=== PATIENT | male | born 1940 | race Caucasian/White ===

== ENCOUNTER 2018-02-19 15:11 | Inpatient (IN) | payer MEDICARE, BC ==
[~2018-02-19] VITALS: Ht 172.7 cm; Wt 93.2 kg
[~2018-02-19 15:11] MED LIST: DILT180T PO; DRON400T PO; FAMO-63 PO; FENO135C PO; LOSA100T6 PO; RIVA10TA PO; SUCR1TAB35 PO; TAMS0.4C2 PO
--- NOTE | 2018-02-19 15:49 | EKG ---
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
[2018-02-19 16:11] LABS: BASO # 0.1 x10^3/uL (0.0-0.2); BASO % 1 % (0-3); EOS # 0.1 x10^3/uL (0.0-0.7); EOS % 1 % (0-3); HEMATOCRIT 40.7 % (39.0-53.0); HEMOGLOBIN 13.8 g/dL (13.0-17.5); LYMPH # 2.6 x10^3/uL (1.0-4.8); LYMPH % 26 % (24-48); MEAN CORPUSCULAR HEMOGLOBIN 30 pg (25-35); MEAN CORPUSCULAR HGB CONC 34 g/dL (31-37); MEAN CORPUSCULAR VOLUME 90 fL (79-100); MONO # 0.9 x10^3/uL (0.0-1.1); MONO % 9 % (0-9); NEUT # 6.6 x10^3uL (1.8-7.7); NEUT % 64 % (31-73); PLATELET COUNT 164 x10^3/uL (140-400); RED BLOOD COUNT 4.54 x10^6/uL (4.30-5.70); WHITE BLOOD COUNT 10.3 x10^3/uL (4.0-11.0)
--- NOTE | 2018-02-19 16:30 | RAD ---
Portable chest, 02/19/2018: History: Generalized weakness Comparison is made to a study from 12/14/2015. The heart size and pulmonary vascularity are normal. No pulmonary infiltrates are seen. There is no evidence of pleural fluid. IMPRESSION: No acute cardiopulmonary abnormality is detected.
[2018-02-19 16:37] LABS: ALBUMIN 3.8 g/dL (3.4-5.0); ALBUMIN/GLOBULIN RATIO 1.2 (1.0-1.7); CALCIUM 8.7 mg/dL (8.5-10.1); CREATININE 2.2 mg/dL (0.7-1.3); GFR 29.2; POTASSIUM 4.2 mmol/L (3.5-5.1); TOTAL BILIRUBIN 0.3 mg/dL (0.2-1.0); TOTAL PROTEIN 7.1 g/dL (6.4-8.2)
[2018-02-19 17:23] LABS: BILIRUBIN,URINE NEG (NEG); CLARITY,URINE HAZY; COLOR,URINE YELLOW; GLUCOSE,URINE NEG (NEG)
[2018-02-19 17:24] LABS: BACTERIA,URINE 0 /HPF (0-FEW); NITRITE,URINE NEG (NEG); SQUAMOUS EPITHELIAL CELL,UR MOD /LPF; UROBILINOGEN,URINE 0.2 mg/dL (0.2 mg/dL)
[2018-02-19 17:25] LABS: HYALINE CASTS, URINE FEW /HPF
--- NOTE | 2018-02-19 17:26 | PHYS DOC ---
Past History Past Medical History: A-Fib, High Cholesterol, Hypertension, Other Past Surgical History: Other Smoking: Non-smoker Alcohol Use: None Drug Use: None Adult General Chief Complaint Chief Complaint: WEAKNESS/GENERALIZED HPI HPI 77-year-old male patient state for the last 10 days he doesn't feel good and complaining of generalized weakness with problem with his balance episodes of exertional shortness of breath that gradually getting worse. Patient denies chest pain, fever and chills, nausea and vomiting, focal neuro deficit, blurred vision, headache, vomiting and diarrhea, urinary symptom.. Patient states he had the same problem 3 years ago with low hemoglobin. Patient states he was seen by his primary care physician yesterday and had blood tests and was told that his kidney test are off of normal and needs to come to emergency room. Review of Systems Review of Systems Constitutional: Denies fever or chills, reports generalized weakness [] Eyes: Denies change in visual acuity, redness, or eye pain [] HENT: Denies nasal congestion or sore throat [] Respiratory: Reports shortness of breath [] Cardiovascular: No additional information not addressed in HPI [] GI: Denies abdominal pain, nausea, vomiting, bloody stools or diarrhea [] : Denies dysuria or hematuria [] Musculoskeletal: Denies back pain or joint pain [] Integument: Denies rash or skin lesions [] Neurologic: Denies headache, focal weakness or sensory changes [] Endocrine: Denies polyuria or polydipsia [] All other systems were reviewed and found to be within normal limits, except as documented in this note. Allergies Allergies Allergies Coded Allergies Type Severity Reaction Last Updated Verified No Known Drug Allergies 02/19/18 No Physical Exam Physical Exam Constitutional: Well developed, well nourished, mild distress, non-toxic appearance. [] HENT: Normocephalic, atraumatic, bilateral external ears normal, oropharynx moist, no oral exudates, nose normal. [] Eyes: PERRLA, EOMI, conjunctiva normal, no discharge. [] Neck: Normal range of motion, no tenderness, supple, no stridor. [] Cardiovascular: Irregularly irregular heartbeat, no murmur [] Lungs & Thorax: Bilateral breath sounds clear to auscultation [] Abdomen: Bowel sounds normal, soft, no tenderness, no masses, no pulsatile masses. [] Skin: Warm, dry, no erythema, no rash. [] Back: No tenderness, no CVA tenderness. [] Extremities: No tenderness, no cyanosis, no clubbing, ROM intact, no edema. [] Neurologic: Alert and oriented X 3, normal motor function, normal sensory function, no focal deficits noted. [] Psychologic: Affect normal, judgement normal, mood normal. [] Current Patient Data Vital Signs Vital Signs Date Time Temp Pulse Resp B/P (MAP) Pulse Ox O2 Delivery O2 Flow Rate FiO2 02/19/18 16:29 62 16 150/58 (88) 96 02/19/18 15:30 97.9 Room Air Lab Results Laboratory Tests Test 02/19/18 15:55 White Blood Count 10.3 x10^3/uL (4.0-11.0) Red Blood Count 4.54 x10^6/uL (4.30-5.70) Hemoglobin 13.8 g/dL (13.0-17.5) Hematocrit 40.7 % (39.0-53.0) Mean Corpuscular Volume 90 fL (79-100) Mean Corpuscular Hemoglobin 30 pg (25-35) Mean Corpuscular Hemoglobin Concent 34 g/dL (31-37) Red Cell Distribution Width 14.0 % (11.5-14.5) Platelet Count 164 x10^3/uL (140-400) Neutrophils (%) (Auto) 64 % (31-73) Lymphocytes (%) (Auto) 26 % (24-48) Monocytes (%) (Auto) 9 % (0-9) Eosinophils (%) (Auto) 1 % (0-3) Basophils (%) (Auto) 1 % (0-3) Neutrophils # (Auto) 6.6 x10^3uL (1.8-7.7) Lymphocytes # (Auto) 2.6 x10^3/uL (1.0-4.8) Monocytes # (Auto) 0.9 x10^3/uL (0.0-1.1) Eosinophils # (Auto) 0.1 x10^3/uL (0.0-0.7) Basophils # (Auto) 0.1 x10^3/uL (0.0-0.2) Sodium Level 141 mmol/L (136-145) Potassium Level 4.2 mmol/L (3.5-5.1) Chloride Level 106 mmol/L (98-107) Carbon Dioxide Level 24 mmol/L (21-32) Anion Gap 11 (6-14) Blood Urea Nitrogen 40 mg/dL (8-26) H Creatinine 2.2 mg/dL (0.7-1.3) H Estimated GFR (Cockcroft-Gault) 29.2 BUN/Creatinine Ratio 18 (6-20) Glucose Level 123 mg/dL (70-99) H Calcium Level 8.7 mg/dL (8.5-10.1) Magnesium Level 2.0 mg/dL (1.8-2.4) Total Bilirubin 0.3 mg/dL (0.2-1.0) Aspartate Amino Transferase (AST) 26 U/L (15-37) Alanine Aminotransferase (ALT) 40 U/L (16-63) Alkaline Phosphatase 37 U/L (46-116) L Creatine Kinase 151 U/L (39-308) Creatine Kinase MB (Mass) 2.9 ng/mL (0.0-3.6) Creatine Kinase MB Relative Index 1.9 % (0-4) Troponin I Quantitative < 0.017 ng/mL (0-0.055) NX-Wvx-A-Type Natriuretic Peptide 1300 pg/mL (0-449) H Total Protein 7.1 g/dL (6.4-8.2) Albumin 3.8 g/dL (3.4-5.0) Albumin/Globulin Ratio 1.2 (1.0-1.7) EKG EKG EKG interpreted by me. EKG at 1546 showed atrial fibrillation at rate of 60, left chirinos axis deviation, right bundle branch block, poor R-wave progress in inferior leads, no acute ST and T-wave abnormalities[] Radiology/Procedures Radiology/Procedures [] [address] [address] IMAGING REPORT Signed PATIENT: TACHO VAZQUEZ ACCOUNT: [id number] : 1940 LOCATION: ER AGE: 77 SEX: M EXAM STATUS: REG ER ORD. PHYSICIAN: AMY ROGERS MD REASON: generalized weakness PROCEDURE: PORTABLE CHEST 1V Portable chest, 02/19/2018: History: Generalized weakness Comparison is made to a study from 12/14/2015. The heart size and pulmonary vascularity are normal. No pulmonary infiltrates are seen. There is no evidence of pleural fluid. IMPRESSION: No acute cardiopulmonary abnormality is detected. DICTATED AND SIGNED BY: NASRIN WING MD DATE: 02/19/18 6188 CC: DEMETRIA COMBS MD; AMY ROGERS MD ~ Course & Med Decision Making Course & Med Decision Making Pertinent Labs and Imaging studies reviewed. (See chart for details) Evaluation of patient in ER showed 77-year-old female patient with history of chronic renal failure with complaining of generalized weakness for 10 days. Patient had BUN/creatinine of 40 and 2.2 without electrolyte problem or anemia. UA showed mild UTI. Dr. Combs informed at 1723 and recommended to admit patient for more evaluation. UA showed UTI and antibiotics was ordered. [] Dragon Disclaimer Dragon Disclaimer This electronic medical record was generated, in whole or in part, using a voice recognition dictation system. Departure Departure: Impression: Primary Impression: Generalized weakness Additional Impressions: Shortness of breath Chronic renal insufficiency Elevated brain natriuretic peptide (BNP) level Disposition: 09 ADMITTED INPATIENT (At 1723) Admitting Physician: Demetria Combs Condition: STABLE Referrals: DEMETRIA COMBS MD (PCP) Problem Qualifiers AMY ROGERS MD Feb 19, 2018 17:26
[2018-02-19] MEDS ORDERED: cefTRIAXone IV Push 1 GM VIAL. IVP ONE (18:00)
[2018-02-19 18:46] VITALS: BP 163/79
[2018-02-19] MEDS ORDERED: APIX5TAB3 PO (19:07)
[2018-02-19] MEDS ORDERED: FERR325T14 PO (19:07)
[2018-02-19] MEDS ORDERED: ASCO500C PO (19:07)
[2018-02-19] MEDS ORDERED: MULT1TAB52 PO (19:07)
[2018-02-19] MEDS ORDERED: CALC-30 PO (19:07)
[2018-02-19] MEDS: FENOFIBRATE NANOCRYSTALLIZED 145 MG TABLET PO SCH (21:09)
[2018-02-19] MEDS: APIXABAN 5 MG TABLET. PO SCH (21:09)
[2018-02-19] MEDS: DRONEDARONE HCL 400 MG TABLET PO SCH (21:10)
[2018-02-19 23:00] VITALS: BP 125/67
[2018-02-20 05:01] VITALS: BP 142/72
[2018-02-20 06:29] LABS: BASO % 1 % (0-3); EOS # 0.2 x10^3/uL (0.0-0.7); EOS % 3 % (0-3); HEMATOCRIT 38.5 % (39.0-53.0); LYMPH # 2.1 x10^3/uL (1.0-4.8); LYMPH % 33 % (24-48); MEAN CORPUSCULAR HEMOGLOBIN 30 pg (25-35); MEAN CORPUSCULAR HGB CONC 34 g/dL (31-37); MEAN CORPUSCULAR VOLUME 89 fL (79-100); MONO # 0.6 x10^3/uL (0.0-1.1); MONO % 9 % (0-9); NEUT # 3.5 x10^3uL (1.8-7.7); NEUT % 55 % (31-73); PLATELET COUNT 144 x10^3/uL (140-400); RED BLOOD COUNT 4.31 x10^6/uL (4.30-5.70); RED CELL DISTRIBUTION WIDTH 13.6 % (11.5-14.5); WHITE BLOOD COUNT 6.5 x10^3/uL (4.0-11.0)
[2018-02-20 06:40] LABS: ALBUMIN 3.6 g/dL (3.4-5.0); ALBUMIN/GLOBULIN RATIO 1.2 (1.0-1.7); CALCIUM 9.1 mg/dL (8.5-10.1); CREATININE 1.7 mg/dL (0.7-1.3); GFR 39.3; POTASSIUM 4.1 mmol/L (3.5-5.1); TOTAL BILIRUBIN 0.4 mg/dL (0.2-1.0); TOTAL PROTEIN 6.7 g/dL (6.4-8.2)
[2018-02-20] MEDS: ASCORBIC ACID 500 MG TABLET PO SCH (08:09)
[2018-02-20] MEDS: APIXABAN 5 MG TABLET. PO SCH ×2 (08:09→20:15)
[2018-02-20] MEDS: CALCIUM CARB/VIT D3 500/200 TABLET PO SCH (08:09)
[2018-02-20] MEDS: MULTIVITAMIN with MINERAL TABLET. PO SCH (08:09)
[2018-02-20] MEDS: DRONEDARONE HCL 400 MG TABLET PO SCH ×2 (08:09→20:15)
[2018-02-20] MEDS: LOSARTAN 50 MG TABLET. PO SCH (08:10)
[2018-02-20] MEDS ORDERED: FENOFIBRATE NANOCRYSTALLIZED 145 MG TABLET PO SCH (09:00)
[2018-02-20 10:50] VITALS: BP 127/75
--- NOTE | 2018-02-20 11:59 | CARD ---
MR#: [id number] Date of Study: 02/20/2018 Ordering Physician: DEMETRIA COMBS, Referring Physician: DEMETRIA COMBS, Tech: PRICE [place] APPROVED REPORT EXAM: Two-dimensional and M-mode echocardiogram with Doppler and color Doppler. Other Information Quality : GoodHR: 75bpm INDICATION Chest Pain 2D DIMENSIONS RVDd2.9 (2.9-3.5cm)Left Atrium(2D)3.6 (1.6-4.0cm) IVSd1.6 (0.7-1.1cm)Aortic Root(2D)3.1 (2.0-3.7cm) LVDd3.9 (3.9-5.9cm)LVOT Diameter2.2 (1.8-2.4cm) PWd1.6 (0.7-1.1cm)LVDs2.6 (2.5-4.0cm) FS (%) 34.4 %SV43.3 ml Aortic Valve AoV Peak Hossein.190.9cm/sAoV VTI41.6cm AO Peak GR.14.6mmHgLVOT Peak Hossein.110.7cm/s LVOT VTI 23.53cmAO Mean GR.9mmHg TAJ (VMAX)2.73db5WVN (VTI)2.06cm2 Pulmonary Valve PV Peak Ytywzgyv888.0cm/sPV Peak Grad.6mmHg Tricuspid Valve TR P. Weebzxox433nu/sTR Peak Gr.27mmHg Pulmonary Vein S1 Pnhtmkpn08.7cm/sD2 Zlamifjr19.1cm/s LEFT VENTRICLE The left ventricle is normal size. There is mild concentric left ventricular hypertrophy. The left ve ntricular systolic function is normal and the ejection fraction is within normal range. LV ejection f raction is 55-60%. There is normal LV segmental wall motion. The left ventricular diastolic function and filling is normal for age. RIGHT VENTRICLE The right ventricle is normal size. The right ventricular systolic function is normal. ATRIA The left atrium size is normal. The right atrium size is normal. The interatrial septum is intact wit h no evidence for an atrial septal defect or patent foramen ovale as noted on 2-D or Doppler imaging. AORTIC VALVE The aortic valve is mildly calcified. Doppler and Color Flow revealed trace aortic regurgitation. The re is no significant aortic valvular stenosis. There is no aortic valvular vegetation. MITRAL VALVE The mitral valve is mildly thickened. Mitral annular calcification is mild. There is no evidence of m itral valve prolapse. There is no mitral valve stenosis. Doppler and Color Flow revealed trace mitral valve regurgitation. TRICUSPID VALVE The tricuspid valve leaflets are thickened or calcified, but open well. Doppler and Color Flow reveal ed mild tricuspid regurgitation. There is no tricuspid valve prolapse or vegetation. There is no tric uspid valve stenosis. PULMONIC VALVE The pulmonic valve is not well visualized. Doppler and Color Flow revealed no pulmonic valvular regur gitation. There is no pulmonic valvular stenosis. GREAT VESSELS The aortic root is normal in size. The IVC was not visualized. PERICARDIAL EFFUSION There is no pleural effusion. There is no evidence of significant pericardial effusion. Critical Notification Critical Value: No <Conclusion> The left ventricle is normal size. The left ventricular systolic function is normal and the ejection fraction is within normal range. LV ejection fraction is 55-60%. There is mild concentric left ventricular hypertrophy. There is no significant aortic valvular stenosis. Doppler and Color Flow revealed trace aortic regurgitation. Doppler and Color Flow revealed trace mitral valve regurgitation. Doppler and Color Flow revealed mild tricuspid regurgitation. Signed by : Miah Mitchell MD Electronically Approved : 02/20/2018 11:58:25
[2018-02-20 15:03] VITALS: BP 154/78
--- NOTE | 2018-02-20 15:58 | PDOC2 ---
RHONDA OLVERA WATCH AND CLOCK REPAIRER 02/20/18 1558: CONSULT Date of Admission DATE: 02/20/18 TIME: 15:43 Reason for Consult: Elevated BNP Referring Physician: Dr Grigsby Problem List Problems Medical Problems: (1) Chronic renal insufficiency Status: Acute (2) Elevated brain natriuretic peptide (BNP) level Status: Acute (3) Generalized weakness Status: Acute (4) Shortness of breath Status: Acute History of Present Illness This is a 77 year old male who presented to the emergency room with chief complaint of weakness.The patient has a history of hypertension, hyperlipidemia , and paroxysmal atrial fibrillation. Over the last 2 weeks he has been having progressive weakness. He has noticed it when he is trying to get out about he will feel overwhelmingly tired. He was at his primary care doctor's office with his and told them of his symptoms. They bisi his blood work because he thought maybe he was anemic again. When the symptoms persisted they had him present to the emergency room. He was found to have a urinary tract infection and an elevated BNP. He has not felt progressive shortness of breath , PND or orthopnea. He denies any recent increase in lower extremity edema. He has had some lightheadedness but no palpitations. During his hospitalization he has been on a residential monitor that showed a short run of atrial flutter. He was asymptomatic at the time. He denies any chest pain, tightness or pressure. Allergies: DOXYCYCLINE Medications: Cartia XT 180 mg capsule,extended release1 capsule daily and a 2nd tablet daily as needed for palpitations. Eliquis 5 mg tablet Take 1 tablet(s) twice a day by oral route. fenofibrate 160 mg [id number] filled [facility] iron once daily losartan 100 mg tablet Take 1 tablet(s) every day by oral route for 30 days. Multaq 400 mg tablet TAKE ONE TABLET BY MOUTH TWICE DAILY Family History : His father had heart disease at a later stage. His daughter has hypertension diabetes. His mother had diabetes. Social History Marital status: Diet: Regular Exercise level: Moderate Smoking Status: Never smoker Alcohol intake: None Caffeine intake: Occasional Past Medical/Surgical History - He has a past medical history of paroxysmal atrial fibrillation, hyperlipidemia, hypertension, bilateral cataract removal, tonsillectomy, adenoidectomy, chronic kidney disease stage 3, status post TURP, bilateral metacarpal surgery, right knee replacement Review of systems -review of 10 organ systems is negative except for as in HPI. Patient is a 77-year-old male. GENERAL: This is a well developed, well nourished male. No apparent distress. SKIN: Warm and dry with normal skin turgor. Negative for pallor. No lesions or rashes noted. EYES: Conjunctiva are clear. Extraocular movements are intact. No xanthelasma. HEAD AND NECK: Oral mucosa is moist. There is no cyanosis. Neck is supple. Jugular venous pressure is flat. Carotid pulses are 2/2 bilaterally. No carotid bruits. There is no obvious thyromegaly. HEART: Regular rate and rhythm. Normal S1 and S2. No S3. No S4. No significant murmur. No rub. PMI is not displaced. LUNGS: Effort is good. There is symmetric expansion bilaterally. Clear to auscultation bilaterally. No wheezes. No crackles. No rhonchi. ABDOMEN: Normal active bowel sounds. Soft. Nontender. EXTREMITIES: No clubbing. No cyanosis. No edema of lower extremities. Palpable pedal pulses. MUSCULOSKELETAL: No kyphosis. No scoliosis. No localized tenderness or stiffness. Gait appears normal. NEUROLOGIC: Alert and oriented times three. Cranial nerves III-XII are grossly intact. Good motor tone and strength in the upper and lower extremities bilaterally. PSYCHOLOGIC: This is a pleasant patient with a normal affect Procedure: ECHOCARDIOGRAM IMPRESSION (11/06/2017):. There is mild concentric left ventricular hypertrophy. The left ventricular systolic function is normal with a visually estimated ejection fraction of 60-65 %. There is evidence of impaired left ventricular relaxation suggestive of stage I diastolic dysfunction. The proximal ascending aorta appears mildly dilated at 3.9 cm. There is mildaortic stenosis. There is mild aortic regurgitation. There is mild mitral annular calcification. The estimated pulmonary artery systolic pressure is normal at 28 mmHg. Compared to the report (images were not available for review) of the study dated 10/30/2016, there is no significant change. EVENT MONITOR 05/02/17: Predominant rhythm was sinus with heart rate ranging from 39 to 139 bpm, with averate 70 bpm. There was an intermittent bundle brance block noted. There were rare episodes of atrial fibrillation (<1%), with longest episode lasting over 11 minutes. Fastest ventricular rate with afib was 139bpm. There were occasional pauses, longest lasting 3.9 seconds. There were occasional isolated PAC's and rare isolated PVC's. THere were no significant ventricular arrhythmias. There was one triggered event that correlated with sinus rhythm. ECHOCARDIOGRAM IMPRESSION (10/30/2016):. There is mild concentric left ventricular hypertrophy. No significant regional wall motion abnormalities are identified. The left ventricular systolic function is normal with a visually estimated ejection fraction of 55-60%. There is evidence of impaired left ventricular relaxation suggestive of stage I diastolic dysfunction. The proximal ascending aorta appears mildly dilated at 4.1 cm. There is mild aortic valve sclerosis. There is mild mitral annular calcification. There is mild aortic and tricuspid regurgitation. The estimated pulmonary artery systolic pressure is normal at 29 mmHg. Compared to the report (images were not available for review) of the study dated 10/25/2015, the pulmonary hypertension is not seen. ECHOCARDIOGRAM IMPRESSION (10/25/2015): The left ventricle is normal in size. There is mild concentric left ventricular hypertrophy. No significant regional wall motion abnormalities are identified. The left ventricular systolic function is normal with an estimated ejection fraction of 60%. There is evidence of impaired left ventricular relaxation suggestive of stage I diastolic dysfunction. The proximal ascending aorta appears mildly dilated at 3.9 cm. There is mild aortic valve sclerosis. There is mild aortic and tricuspid regurgitation. The estimated pulmonary artery systolic pressure is 36 mmHg, consistent with mild pulmonary hypertension. Compared to the report (images were not available for review) of the study dated 09/13/2010, mild aortic regurgitation, mild ascending aortic dilatation and mild pulmonary hypertension are new findings. EXERCISE NUCLEAR STRESS TEST IMPRESSION (12/01/2012): Hemodynamic response: There was a normal heart rate and a normal blood pressure response to stress. Clinical response: There was no chest pain during stress. Arrhythmias: None. Stress ECG: There were no significant stress induced ECG changes. Exercise capacity: Good. Carrion score: 6. Myocardial perfusion: Normal perfusion without evidence of infarction or ischemia. Wall motion: Normal. Ejection fraction: 54%. No previous study available for comparison. Assessment / Plan Atrial fibrillation, paroxysmal. His monitor strip show that he is having breakthrough atrial flutter/ fibrillation. This could be related to his current urinary tract infection. [id number] Vasc score is 2, Continue Multaq and diltiazem for rate/rhythm maintenance and Eliquis for anticoagulation. Post discharge we will plan for event monitor to make sure that he is not having further recurrence. Hypertension, Continue current anti hypertensive medicine. Thoracic aortic aneurysm - Continue with continuing beta marcella, dilated at 4.1 cm. Stable on echocardiogram in October. Hyperlipidemia . His goal LDL is < 100 mg/dL. Chronic kidney disease, Stage 3 - GFR 42 - Avoid dehydration - drink plenty of water. Avoid Motrin, Ibuprofen, Advil, Naprosyn or Aleve and take Tylenol for pain. Aggressive blood pressure control with goal of less than 130/85 mmHg. Obesity. BMI 30, Lifestyle modification with exercise, diet and weight loss recommended. Current Medications Current Medications Ceftriaxone Sodium 1 gm/ Sodium Chloride 50 ml @ 100 mls/hr 1X ONCE IV ; Start 02/19/18 at 17:45; Stop 02/19/18 at 18:14; Status UNV Ceftriaxone Sodium (Rocephin) 1 gm 1X ONCE IVP Last administered on 02/19/18at 18:05; Start 02/19/18 at 18:00; Stop 02/19/18 at 18:01; Status DC Apixaban (Eliquis) 5 mg BID PO Last administered on 02/20/18at 08:09; Start 09/28 at 21:00 Dronedarone (Multaq) 400 mg BID PO Last administered on 02/20/18at 08:09; Start 02/19/18 at 21:00 Ferrous Sulfate (Feosol) 325 mg QODAY PO ; Start 02/21/18 at 09:00 Ascorbic Acid (Vitamin C) 500 mg DAILY PO Last administered on 02/20/18at 08:09 ; Start 02/20/18 at 09:00 Calcium/Vitamin D (Oscal D 500mg/ 200uts) 1 tab DAILY PO Last administered on at 08:09; Start 02/20/18 at 09:00 Diltiazem HCl (Cardizem 24hr Cd) 180 mg DAILY PO Last administered on at 08:09; Start 02/20/18 at 09:00 Fenofibrate (Tricor) 145 mg DAILY PO ; Start 02/20/18 at 09:00; Stop 02/20/18 at 09:00; Status DC Losartan Potassium (Cozaar) 50 mg DAILY PO Last administered on 02/20/18at 08:10 ; Start 02/20/18 at 09:00 Multivitamins/ Calcium (Thera-M Plus) 1 tab DAILY PO Last administered on at 08:09; Start 02/20/18 at 09:00 Fenofibrate (Tricor) 145 mg HS PO Last administered on 02/19/18at 21:09; Start 02/19/18 at 21:00 Ceftriaxone Sodium 1 gm/ Sodium Chloride 50 ml @ 100 mls/hr Q24H IV ; Start 10/28 at 18:00; Stop 02/20/18 at 18:00; Status DC Ceftriaxone Sodium (Rocephin) 1 gm Q24H IVP ; Start 02/20/18 at 18:00 Active Scripts Active Losartan Potassium 100 Mg Tablet 50 Mg PO DAILY 0 Days Reported Calcium 500 + Vit D 400 Tablet (Calcium Carbonate/Vitamin D3) 1 Each Tablet 1 Each PO DAILY Vitamin C (Ascorbic Acid) 500 Mg Capsule.er 500 Mg PO DAILY Multivitamins (Multivitamin) 1 Each Tablet 1 Tab PO DAILY Ferrous Sulfate 325 Mg Tablet 1 Tab PO QODAY Eliquis (Apixaban) 5 Mg Tablet 5 Mg PO BID Multaq (Dronedarone Hcl) 400 Mg Tablet 400 Mg PO BID 0 Days last dose next dose Cardizem La (Diltiazem Hcl) 180 Mg Tab.er.24h 180 Mg PO DAILY last dose next dose Trilipix (Fenofibric Acid (Choline)) 135 Mg Capsule.dr 135 Mg PO DAILY last dose next dose Allergies: Coded Allergies: No Known Drug Allergies (Unverified , 02/19/18) VITALS Vital Signs Date Time Temp Pulse Resp B/P (MAP) Pulse Ox O2 Delivery O2 Flow Rate FiO2 02/20/18 15:03 98.2 82 20 154/78 (103) 95 Room Air Labs Laboratory Tests Test 02/19/18 15:55 02/19/18 16:41 02/19/18 17:49 02/20/18 05:57 White Blood Count 10.3 x10^3/uL (4.0-11.0) 6.5 x10^3/uL (4.0-11.0) Red Blood Count 4.54 x10^6/uL (4.30-5.70) 4.31 x10^6/uL (4.30-5.70) Hemoglobin 13.8 g/dL (13.0-17.5) 13.0 g/dL (13.0-17.5) Hematocrit 40.7 % (39.0-53.0) 38.5 % (39.0-53.0) Mean Corpuscular Volume 90 fL (79-100) 89 fL (79-100) Mean Corpuscular Hemoglobin 30 pg (25-35) 30 pg (25-35) Mean Corpuscular Hemoglobin Concent 34 g/dL (31-37) 34 g/dL (31-37) Red Cell Distribution Width 14.0 % (11.5-14.5) 13.6 % (11.5-14.5) Platelet Count 164 x10^3/uL (140-400) 144 x10^3/uL (140-400) Neutrophils (%) (Auto) 64 % (31-73) 55 % (31-73) Lymphocytes (%) (Auto) 26 % (24-48) 33 % (24-48) Monocytes (%) (Auto) 9 % (0-9) 9 % (0-9) Eosinophils (%) (Auto) 1 % (0-3) 3 % (0-3) Basophils (%) (Auto) 1 % (0-3) 1 % (0-3) Neutrophils # (Auto) 6.6 x10^3uL (1.8-7.7) 3.5 x10^3uL (1.8-7.7) Lymphocytes # (Auto) 2.6 x10^3/uL (1.0-4.8) 2.1 x10^3/uL (1.0-4.8) Monocytes # (Auto) 0.9 x10^3/uL (0.0-1.1) 0.6 x10^3/uL (0.0-1.1) Eosinophils # (Auto) 0.1 x10^3/uL (0.0-0.7) 0.2 x10^3/uL (0.0-0.7) Basophils # (Auto) 0.1 x10^3/uL (0.0-0.2) 0.0 x10^3/uL (0.0-0.2) Sodium Level 141 mmol/L (136-145) 141 mmol/L (136-145) Potassium Level 4.2 mmol/L (3.5-5.1) 4.1 mmol/L (3.5-5.1) Chloride Level 106 mmol/L (98-107) 103 mmol/L (98-107) Carbon Dioxide Level 24 mmol/L (21-32) 27 mmol/L (21-32) Anion Gap 11 (6-14) 11 (6-14) Blood Urea Nitrogen 40 mg/dL (8-26) 31 mg/dL (8-26) Creatinine 2.2 mg/dL (0.7-1.3) 1.7 mg/dL (0.7-1.3) Estimated GFR (Cockcroft-Gault) 29.2 39.3 BUN/Creatinine Ratio 18 (6-20) 18 (6-20) Glucose Level 123 mg/dL (70-99) 98 mg/dL (70-99) Calcium Level 8.7 mg/dL (8.5-10.1) 9.1 mg/dL (8.5-10.1) Magnesium Level 2.0 mg/dL (1.8-2.4) Total Bilirubin 0.3 mg/dL (0.2-1.0) 0.4 mg/dL (0.2-1.0) Aspartate Amino Transf (AST/SGOT) 26 U/L (15-37) 19 U/L (15-37) Alanine Aminotransferase (ALT/SGPT) 40 U/L (16-63) 33 U/L (16-63) Alkaline Phosphatase 37 U/L (46-116) 32 U/L (46-116) Creatine Kinase 151 U/L (39-308) Creatine Kinase MB (Mass) 2.9 ng/mL (0.0-3.6) Creatine Kinase MB Relative Index 1.9 % (0-4) Troponin I Quantitative < 0.017 ng/mL (0-0.055) RE-Uop-Q-Type Natriuretic Peptide 1300 pg/mL (0-449) Total Protein 7.1 g/dL (6.4-8.2) 6.7 g/dL (6.4-8.2) Albumin 3.8 g/dL (3.4-5.0) 3.6 g/dL (3.4-5.0) Albumin/Globulin Ratio 1.2 (1.0-1.7) 1.2 (1.0-1.7) Urine Collection Type Unknown Urine Color Yellow Urine Clarity Hazy Urine pH 5.0 Urine Specific Swain 1.020 Urine Protein 30 mg/dl (NEG-TRACE) Urine Glucose (UA) Neg mg/dL (NEG) Urine Ketones (Stick) Neg mg/dL (NEG) Urine Blood Trace (NEG) Urine Nitrite Neg (NEG) Urine Bilirubin Neg (NEG) Urine Urobilinogen Dipstick 0.2 mg/dL (0.2 mg/dL) Urine Leukocyte Esterase Trace (NEG) Urine RBC 3-5 /HPF (0-2) Urine WBC 5-10 /HPF (0-4) Urine Squamous Epithelial Cells Mod /LPF Urine Bacteria 0 /HPF (0-FEW) Urine Cellular Casts Few /HPF Urine Hyaline Casts Few /HPF Urine Mucus Mod /LPF Lactic Acid Level 0.9 mmol/L (0.4-2.0) ALEJANDRO PAIGE Jr, MD 02/21/18 0633: CONSULT Allergies: Coded Allergies: No Known Drug Allergies (Unverified , 02/19/18) Assessment/Plan The patient was seen by Rhonda Olvera APRN and I have reviewed her findings and plan and agree with above. Due to staffing constraints, we did not have an attending available on this day to see the patient. Problems: RHONDA OLVERA APRN Feb 20, 2018 15:58 ALEJANDRO PAIGE Jr, MD Feb 21, 2018 06:33
[2018-02-20] MEDS ORDERED: cefTRIAXone IV Push 1 GM VIAL. IVP SCH (18:00)
[2018-02-20 18:58] VITALS: BP 127/70
[2018-02-20] MEDS ORDERED: ACETAMINOPHEN 325 MG TABLET PO PRN (20:00)
[2018-02-20] MEDS: FENOFIBRATE NANOCRYSTALLIZED 145 MG TABLET PO SCH (20:15)
--- NOTE | 2018-02-20 22:46 | PN ---
DATE: 02/20/2018 SUBJECTIVE: The patient resting fairly comfortably, with generalized weakness and alike. The patient otherwise seems to be resting fairly comfortably, may have some pauses on his EKG. OBJECTIVE: VITAL SIGNS: Blood pressure 120/60, respiratory rate 20, pulse 61, afebrile. GENERAL: The patient is alert and oriented x 3. NEUROLOGIC: Speech fluent, spontaneous, appropriate. Cranial nerves 2-12 are grossly intact. The patient otherwise a little bit depressed. PLAN: We will go ahead and continue to monitor the patient accordingly, have Cardiology review him and make further evaluation per those results. The patient's EKG basically abnormal, nonspecific intraventricular block, some pauses noted. We will go ahead and continue possible pacemaker placement and make further evaluation as indicated. IMPRESSION: Chest pain. DEMETRIA COMBS MD DR: PAMELA/mckay JOB#: [id number] / [id number]
--- NOTE | 2018-02-20 22:48 | PN ---
DATE: 02/20/2018 SUBJECTIVE: A 77-year-old gentleman doing much better overall. The patient will be continued to be monitored carefully. Says he is still fairly weak. We will go ahead and continue to monitor him. The patient's monitor strip shows possible pauses. Cardiology is evaluating that and also will have an echo. OBJECTIVE: VITAL SIGNS: Blood pressure 140/70, respiratory rate 20, pulse 80, afebrile. LUNGS: Clear. CARDIOVASCULAR: Regular sinus rhythm. ABDOMEN: Soft, protuberant, nontender. EXTREMITIES: +1 edema. NEUROLOGIC: The patient was alert and oriented x 3. PLAN: The patient will continued to be monitored carefully, make further evaluation on him as indicated after Cardiology has evaluated him. DEMETRIA COMBS MD DR: PAMELA/mckay JOB#: [id number] / [id number]
[2018-02-20 23:31] VITALS: BP 133/68
[2018-02-21 05:09] VITALS: BP 134/75
[2018-02-21] MEDS: APIXABAN 5 MG TABLET. PO SCH (08:23)
[2018-02-21] MEDS: CALCIUM CARB/VIT D3 500/200 TABLET PO SCH (08:24)
[2018-02-21] MEDS: ASCORBIC ACID 500 MG TABLET PO SCH (08:24)
[2018-02-21] MEDS: LOSARTAN 50 MG TABLET. PO SCH (08:24)
[2018-02-21] MEDS: MULTIVITAMIN with MINERAL TABLET. PO SCH (08:24)
[2018-02-21 08:27] VITALS: BP 134/75
[2018-02-21] MEDS: DRONEDARONE HCL 400 MG TABLET PO SCH (08:27)
--- NOTE | 2018-02-21 08:33 | PDOC ---
RHONDA MORALES LETTERSET PRESS SET UP OPERATOR 02/21/18 0833: PROGRESS NOTES Diagnosis Problem Problems Medical Problems: (1) Chronic renal insufficiency Status: Acute (2) Elevated brain natriuretic peptide (BNP) level Status: Acute (3) Generalized weakness Status: Acute (4) Shortness of breath Status: Acute Assessment Problems Medical Problems: We are seeing the patient for paroxysmal atrial fibrillation Atrial fibrillation, paroxysmal. Since admit he has had two episodes of breakthrough atrial flutter/ fibrillation. This could be related to his current urinary tract infection. When he spontaneously converted back to SR he had a 3.2 second pause. [id number] Vasc score is 2, Continue Multaq and diltiazem for rate/rhythm maintenance and Eliquis for anticoagulation. Post discharge we will plan for event monitor. Hypertension, Continue current anti hypertensive medicine. Thoracic aortic aneurysm - Continue with continuing beta marcella, dilated at 4.1 cm. Stable on echocardiogram in October. Hyperlipidemia . His goal LDL is < 100 mg/dL. Chronic kidney disease, Stage 3 - Looks better this morning Problems: Subjective Sitting up eating breakfast. Denies any chest pain, soa, or palpitations. He did not feel the episode of atrial flutter or pause, he was sleeping and groggy at the time. Objective Vital Signs Date Time Temp Pulse Resp B/P (MAP) Pulse Ox O2 Delivery O2 Flow Rate FiO2 02/21/18 08:27 62 134/75 02/21/18 05:09 97.5 16 97 Room Air Intake and Output 02/21/18 07:00 Intake Total 2520 ml Balance 2520 ml Intake Oral 2520 ml # Voids 10 # Bowel Movements 1 Abdomen: Normal bowel sounds, Soft, No tenderness Heart: Regular rate, Normal S1, Normal S2, No murmurs Extremities: No edema (trace edema), Normal pulses General: Alert, Oriented X3, Cooperative Psych/Mental Status: Mental status NL, Mood NL Review of Relevant I have reviewed the following items enoc (where applicable) has been applied. Labs Laboratory Tests Test 02/19/18 15:55 02/19/18 16:41 02/19/18 17:49 02/20/18 05:57 White Blood Count 10.3 x10^3/uL (4.0-11.0) 6.5 x10^3/uL (4.0-11.0) Red Blood Count 4.54 x10^6/uL (4.30-5.70) 4.31 x10^6/uL (4.30-5.70) Hemoglobin 13.8 g/dL (13.0-17.5) 13.0 g/dL (13.0-17.5) Hematocrit 40.7 % (39.0-53.0) 38.5 % (39.0-53.0) Mean Corpuscular Volume 90 fL (79-100) 89 fL (79-100) Mean Corpuscular Hemoglobin 30 pg (25-35) 30 pg (25-35) Mean Corpuscular Hemoglobin Concent 34 g/dL (31-37) 34 g/dL (31-37) Red Cell Distribution Width 14.0 % (11.5-14.5) 13.6 % (11.5-14.5) Platelet Count 164 x10^3/uL (140-400) 144 x10^3/uL (140-400) Neutrophils (%) (Auto) 64 % (31-73) 55 % (31-73) Lymphocytes (%) (Auto) 26 % (24-48) 33 % (24-48) Monocytes (%) (Auto) 9 % (0-9) 9 % (0-9) Eosinophils (%) (Auto) 1 % (0-3) 3 % (0-3) Basophils (%) (Auto) 1 % (0-3) 1 % (0-3) Neutrophils # (Auto) 6.6 x10^3uL (1.8-7.7) 3.5 x10^3uL (1.8-7.7) Lymphocytes # (Auto) 2.6 x10^3/uL (1.0-4.8) 2.1 x10^3/uL (1.0-4.8) Monocytes # (Auto) 0.9 x10^3/uL (0.0-1.1) 0.6 x10^3/uL (0.0-1.1) Eosinophils # (Auto) 0.1 x10^3/uL (0.0-0.7) 0.2 x10^3/uL (0.0-0.7) Basophils # (Auto) 0.1 x10^3/uL (0.0-0.2) 0.0 x10^3/uL (0.0-0.2) Sodium Level 141 mmol/L (136-145) 141 mmol/L (136-145) Potassium Level 4.2 mmol/L (3.5-5.1) 4.1 mmol/L (3.5-5.1) Chloride Level 106 mmol/L (98-107) 103 mmol/L (98-107) Carbon Dioxide Level 24 mmol/L (21-32) 27 mmol/L (21-32) Anion Gap 11 (6-14) 11 (6-14) Blood Urea Nitrogen 40 mg/dL (8-26) 31 mg/dL (8-26) Creatinine 2.2 mg/dL (0.7-1.3) 1.7 mg/dL (0.7-1.3) Estimated GFR (Cockcroft-Gault) 29.2 39.3 BUN/Creatinine Ratio 18 (6-20) 18 (6-20) Glucose Level 123 mg/dL (70-99) 98 mg/dL (70-99) Calcium Level 8.7 mg/dL (8.5-10.1) 9.1 mg/dL (8.5-10.1) Magnesium Level 2.0 mg/dL (1.8-2.4) Total Bilirubin 0.3 mg/dL (0.2-1.0) 0.4 mg/dL (0.2-1.0) Aspartate Amino Transf (AST/SGOT) 26 U/L (15-37) 19 U/L (15-37) Alanine Aminotransferase (ALT/SGPT) 40 U/L (16-63) 33 U/L (16-63) Alkaline Phosphatase 37 U/L (46-116) 32 U/L (46-116) Creatine Kinase 151 U/L (39-308) Creatine Kinase MB (Mass) 2.9 ng/mL (0.0-3.6) Creatine Kinase MB Relative Index 1.9 % (0-4) Troponin I Quantitative < 0.017 ng/mL (0-0.055) VZ-Lcl-Q-Type Natriuretic Peptide 1300 pg/mL (0-449) Total Protein 7.1 g/dL (6.4-8.2) 6.7 g/dL (6.4-8.2) Albumin 3.8 g/dL (3.4-5.0) 3.6 g/dL (3.4-5.0) Albumin/Globulin Ratio 1.2 (1.0-1.7) 1.2 (1.0-1.7) Urine Collection Type Unknown Urine Color Yellow Urine Clarity Hazy Urine pH 5.0 Urine Specific [place] 1.020 Urine Protein 30 mg/dl (NEG-TRACE) Urine Glucose (UA) Neg mg/dL (NEG) Urine Ketones (Stick) Neg mg/dL (NEG) Urine Blood Trace (NEG) Urine Nitrite Neg (NEG) Urine Bilirubin Neg (NEG) Urine Urobilinogen Dipstick 0.2 mg/dL (0.2 mg/dL) Urine Leukocyte Esterase Trace (NEG) Urine RBC 3-5 /HPF (0-2) Urine WBC 5-10 /HPF (0-4) Urine Squamous Epithelial Cells Mod /LPF Urine Bacteria 0 /HPF (0-FEW) Urine Cellular Casts Few /HPF Urine Hyaline Casts Few /HPF Urine Mucus Mod /LPF Lactic Acid Level 0.9 mmol/L (0.4-2.0) Microbiology 02/19/18 Blood Culture - Preliminary, Resulted NO GROWTH AFTER 1 DAY 02/19/18 Urine Culture - Preliminary, Resulted 02/19/18 Urine Culture Result 1 (BHAKTI) - Preliminary, Resulted Medications Current Medications Ceftriaxone Sodium 1 gm/ Sodium Chloride 50 ml @ 100 mls/hr 1X ONCE IV ; Start 02/19/18 at 17:45; Stop 02/19/18 at 18:14; Status UNV Ceftriaxone Sodium (Rocephin) 1 gm 1X ONCE IVP Last administered on 02/19/18at 18:05; Start 02/19/18 at 18:00; Stop 02/19/18 at 18:01; Status DC Apixaban (Eliquis) 5 mg BID PO Last administered on 02/21/18at 08:23; Start 09/28 at 21:00 Dronedarone (Multaq) 400 mg BID PO Last administered on 02/21/18at 08:27; Start 02/19/18 at 21:00 Ferrous Sulfate (Feosol) 325 mg QODAY PO Last administered on 02/21/18at 08:24; Start 02/21/18 at 09:00 Ascorbic Acid (Vitamin C) 500 mg DAILY PO Last administered on 02/21/18 08:24 ; Start 02/20/18 at 09:00 Calcium/Vitamin D (Oscal D 500mg/ 200uts) 1 tab DAILY PO Last administered on 08:24; Start 02/20/18 at 09:00 Diltiazem HCl (Cardizem 24hr Cd) 180 mg DAILY PO Last administered on 08:24; Start 02/20/18 at 09:00 Fenofibrate (Tricor) 145 mg DAILY PO ; Start 02/20/18 at 09:00; Stop 02/20/18 at 09:00; Status DC Losartan Potassium (Cozaar) 50 mg DAILY PO Last administered on 02/21/18 08:24 ; Start 02/20/18 at 09:00 Multivitamins/ Calcium (Thera-M Plus) 1 tab DAILY PO Last administered on 08:24; Start 02/20/18 at 09:00 Fenofibrate (Tricor) 145 mg HS PO Last administered on 02/20/18at 20:15; Start 02/19/18 at 21:00 Ceftriaxone Sodium 1 gm/ Sodium Chloride 50 ml @ 100 mls/hr Q24H IV ; Start 10/28 at 18:00; Stop 02/20/18 at 18:00; Status DC Ceftriaxone Sodium (Rocephin) 1 gm Q24H IVP Last administered on 02/20/18at 17: 48; Start 02/20/18 at 18:00 Acetaminophen (Tylenol) 650 mg PRN Q6HRS PRN PO PAIN / TEMP Last administered on 02/20/18at 20:16; Start 02/20/18 at 20:00 Active Scripts Active Losartan Potassium 100 Mg Tablet 50 Mg PO DAILY 0 Days Reported Calcium 500 + Vit D 400 Tablet (Calcium Carbonate/Vitamin D3) 1 Each Tablet 1 Each PO DAILY Vitamin C (Ascorbic Acid) 500 Mg Capsule.er 500 Mg PO DAILY Multivitamins (Multivitamin) 1 Each Tablet 1 Tab PO DAILY Ferrous Sulfate 325 Mg Tablet 1 Tab PO QODAY Eliquis (Apixaban) 5 Mg Tablet 5 Mg PO BID Multaq (Dronedarone Hcl) 400 Mg Tablet 400 Mg PO BID 0 Days last dose next dose Cardizem La (Diltiazem Hcl) 180 Mg Tab.er.24h 180 Mg PO DAILY last dose next dose Trilipix (Fenofibric Acid (Choline)) 135 Mg Capsule.dr 135 Mg PO DAILY last dose next dose Vitals/I & O Vital Sign - Last 24 Hours 02/20/18 02/20/18 02/20/18 02/20/18 10:50 15:03 18:58 20:05 Temp 98.0 98.2 97.9 Pulse 79 82 80 Resp 20 20 18 B/P (MAP) 127/75 (92) 154/78 (103) 127/70 (89) Pulse Ox 96 95 96 O2 Delivery Room Air Room Air Room Air Room Air 02/20/18 02/20/18 02/21/18 02/21/18 20:15 23:31 05:09 08:24 Temp 97.5 Pulse 80 69 62 62 Resp 16 16 B/P (MAP) 127/70 133/68 (89) 134/75 (94) 134/75 Pulse Ox 97 97 O2 Delivery Room Air Room Air 02/21/18 02/21/18 08:24 08:27 Pulse 62 62 B/P (MAP) 134/75 134/75 Intake and Output 02/20/18 02/20/18 02/21/18 15:00 23:00 07:00 Intake Total 480 ml 1320 ml 720 ml Balance 480 ml 1320 ml 720 ml ALEJANDRO PAIGE Jr, MD 02/21/18 0918: PROGRESS NOTES Assessment Atrial flutter, typical. This has now resolved. This may have recurred due to his urinary tract infection. We will continue Multaq for rhythm management and Eliquis for stroke prevention. We will plan on an event monitor after discharge. From a cardiac standpoint, the patient is ready for discharge. We will arrange for him to come to our office next week to get the event monitor. Essential hypertension. Blood pressure appears reasonably controlled with the present medications. These should be continued. Thoracic aortic aneurysm, without rupture. We have been monitoring this with serial imaging approximately once per year in our office. He should continue with good blood pressure control. Hyperlipidemia, mixed type. Continue present medication. Problems: Subjective We are seeing him for atrial flutter. S: He denies chest pain, dyspnea, palpitations, syncope, or lower extremity edema. When he has atrial flutter and fibrillation he does not have palpitations. Abdomen: Normal bowel sounds, Soft, No tenderness Heart: Regular rate, Normal S1, Normal S2, No murmurs Extremities: No clubbing, No cyanosis, No edema, Normal pulses, No tenderness/ swelling General: Alert, Oriented X3, Cooperative, No acute distress HEENT: Atraumatic, EOMI, Mucous membr. moist/pink Lungs: Clear to auscultation, Normal air movement Neck: No JVD, +2 carotid pulse wo bruit Neuro: Normal speech, Strength at 5/5 X4 ext, Normal tone, Cranial nerves 3-12 NL Psych/Mental Status: Mental status NL, Mood NL Skin: No rashes, No breakdown, No significant lesion RHONDA MORALES APRN Feb 21, 2018 08:33 ALEJANDRO PAIGE Jr, MD Feb 21, 2018 09:18
[2018-02-21] MEDS ORDERED: FERROUS SULFATE 325 MG TABLET. PO SCH (09:00)
[2018-02-21] MEDS ORDERED: CEFU250T59 PO (10:19)
== END 2018-02-21 11:18 | disposition home or self-care (01) | DRG 683 ==
LOC: ER 15:11 → 1 SOUTH 17:25
PROVIDERS: ADMIT Family Medicine; ATTEND Family Medicine
DX: N17.9 Acute kidney failure, unspecified (principal); N39.0 Urinary tract infection, site not specified; I48.0 Paroxysmal atrial fibrillation; I71.2 Thoracic aortic aneurysm, without rupture; D64.89 Other specified anemias; E86.0 Dehydration; E78.2 Mixed hyperlipidemia; I12.9 Hypertensive chronic kidney disease with stage 1 through stage 4 chronic kidney disease, or unspecified chronic kidney disease; E66.9 Obesity, unspecified; I48.3 Typical atrial flutter; N18.3 Chronic kidney disease, stage 3 (moderate); I45.4 Nonspecific intraventricular block; R14.0 Abdominal distension (gaseous); Z96.651 Presence of right artificial knee joint; Z82.49 Family history of ischemic heart disease and other diseases of the circulatory system; Z90.79 Acquired absence of other genital organ(s); Z83.3 Family history of diabetes mellitus; Z90.89 Acquired absence of other organs; Z88.1 Allergy status to other antibiotic agents; Z68.31 Body mass index [BMI] 31.0-31.9, adult; Z85.038 Personal history of other malignant neoplasm of large intestine; Z83.6 Family history of other diseases of the respiratory system; Z79.899 Other long term (current) drug therapy; Z98.42 Cataract extraction status, left eye; Z98.41 Cataract extraction status, right eye; Z86.010 Personal history of colon polyps
CPT/HCPCS: 36415; 71045; 80053; 81001; 82553; 83605; 83735; 83880; 84484; 85025; 87040; 87086; 93005; 93306; 96374; J0696; 99285-25

== ENCOUNTER 2018-05-19 22:29 | Inpatient (IN) | payer MEDICARE, BC ==
[~2018-05-19] VITALS: Ht 167.6 cm; Wt 91.7 kg
[~2018-05-19 22:29] MED LIST changes: +APIX5TAB3 PO; +ASCO500C PO; +CALC-30 PO; +CEFU250T59 PO; +FERR325T14 PO; +MULT1TAB52 PO
--- NOTE | 2018-05-19 22:33 | ED.ADGEN ---
Past History Past Medical History: A-Fib, High Cholesterol, Hypertension, Other Past Surgical History: Other Smoking: Non-smoker Alcohol Use: None Drug Use: None Adult General Chief Complaint Chief Complaint " I got really dizzy tonight.. Very weak and unsteady on my feet..." HPI HPI Patient is a 78 year old male who presents with above hx and complaints dizziness, Near syncope. Pt. documented with Bradycardia by paramedics,. Pt. Hx. of Afib, CADz., HTN, DM, BBBLt, and currently anticoagulated with Eliquis. Had problems with Xeralto- required change. Pt. denies any other changes in meds. No hx of trauma, ill contracts or travel. Pt. normally follows with Dr. Grigsby. Review of Systems Review of Systems Constitutional: Denies fever or chills [] Eyes: Denies change in visual acuity, redness, or eye pain [] HENT: Denies nasal congestion or sore throat [] Respiratory: Denies cough or shortness of breath [] Cardiovascular: No additional information not addressed in HPI []Complaints of Bradycardia. Hx. of past rapid heart rates- Afib. Near syncope GI: Denies abdominal pain, nausea, vomiting, bloody stools or diarrhea [] : Denies dysuria or hematuria [] Musculoskeletal: Denies back pain or joint pain [] Integument: Denies rash or skin lesions [] Neurologic: Denies headache, focal weakness or sensory changes [] Endocrine: Denies polyuria or polydipsia [] All other systems were reviewed and found to be within normal limits, except as documented in this note. Family History Family History Non contributory Current Medications Current Medications Current Medications Medications (Trade) Dose Ordered Sig/Gabriel Start Time Stop Time Status Last Admin Dose Admin Aspirin (Children'S Aspirin) 324 mg 1X ONCE 05/19/18 23:00 05/19/18 23:01 DC Sodium Chloride 1,000 ml @ 100 mls/hr Q10H 05/19/18 23:00 05/20/18 08:59 05/19/18 23:35 100 MLS/HR See Nursing for home meds. Allergies Allergies Allergies Coded Allergies Type Severity Reaction Last Updated Verified No Known Drug Allergies 02/19/18 No Physical Exam Physical Exam Constitutional: moderately acute distress, non-toxic appearance. [] HENT: Normocephalic, atraumatic, bilateral external ears normal, oropharynx moist, no oral exudates, nose normal. [] Eyes: PERRLA, EOMI, conjunctiva normal, no discharge. [] Neck: Normal range of motion, no tenderness, supple, no stridor. [] No bruits noted in carotids. Cardiovascular:Bradycardia Heart rate regular rhythm, no murmur []PMI to Lt. Lungs & Thorax: Bilateral breath sounds equal at apex on auscultation [] Abdomen: Bowel sounds normal, soft, no tenderness, no masses, no pulsatile masses. [Obese. Skin: Warm, dry, no erythema, no rash. [] Back: No tenderness, no CVA tenderness. [] Extremities: No tenderness, no cyanosis, no clubbing, ROM intact, no edema. [] Scar Rt. knee. No cording. Neurologic: Alert and oriented X 3, no focal motor or sensory function deficits over base line. GSC 15. DTR +2 patella and brachial. Wig Dresser equal. Wide gait. Psychologic: Affect anxious, judgement normal, mood normal. [] Current Patient Data Vital Signs Vital Signs Date Time Temp Pulse Resp B/P (MAP) Pulse Ox O2 Delivery O2 Flow Rate FiO2 05/19/18 22:29 98.3 81 16 98 Room Air Lab Results Laboratory Tests Test 05/19/18 22:53 White Blood Count 7.3 x10^3/uL (4.0-11.0) Red Blood Count 4.36 x10^6/uL (4.30-5.70) Hemoglobin 13.2 g/dL (13.0-17.5) Hematocrit 39.1 % (39.0-53.0) Mean Corpuscular Volume 90 fL (79-100) Mean Corpuscular Hemoglobin 30 pg (25-35) Mean Corpuscular Hemoglobin Concent 34 g/dL (31-37) Red Cell Distribution Width 13.2 % (11.5-14.5) Platelet Count 159 x10^3/uL (140-400) Neutrophils (%) (Auto) 56 % (31-73) Lymphocytes (%) (Auto) 32 % (24-48) Monocytes (%) (Auto) 9 % (0-9) Eosinophils (%) (Auto) 2 % (0-3) Basophils (%) (Auto) 1 % (0-3) Neutrophils # (Auto) 4.1 x10^3uL (1.8-7.7) Lymphocytes # (Auto) 2.3 x10^3/uL (1.0-4.8) Monocytes # (Auto) 0.7 x10^3/uL (0.0-1.1) Eosinophils # (Auto) 0.1 x10^3/uL (0.0-0.7) Basophils # (Auto) 0.1 x10^3/uL (0.0-0.2) Prothrombin Time 11.6 SEC (9.4-11.4) H Prothrombin Time INR 1.1 (0.9-1.1) PTT 26 SEC (23-33) D-Dimer (Sherry) 0.24 mg/L (0.00-0.50) Sodium Level 138 mmol/L (136-145) Potassium Level 4.6 mmol/L (3.5-5.1) Chloride Level 103 mmol/L (98-107) Carbon Dioxide Level 28 mmol/L (21-32) Anion Gap 7 (6-14) Blood Urea Nitrogen 35 mg/dL (8-26) H Creatinine 1.8 mg/dL (0.7-1.3) H Estimated GFR (Cockcroft-Gault) 36.7 Glucose Level 122 mg/dL (70-99) H Calcium Level 9.7 mg/dL (8.5-10.1) Magnesium Level 1.9 mg/dL (1.8-2.4) Total Bilirubin 0.4 mg/dL (0.2-1.0) Direct Bilirubin < 0.1 mg/dL (0.0-0.2) Aspartate Amino Transferase (AST) 34 U/L (15-37) Alanine Aminotransferase (ALT) 26 U/L (16-63) Alkaline Phosphatase 40 U/L (46-116) L Creatine Kinase 192 U/L (39-308) Creatine Kinase MB (Mass) 2.4 ng/mL (0.0-3.6) Creatine Kinase MB Relative Index 1.3 % (0-4) Troponin I Quantitative < 0.017 ng/mL (0-0.055) LT-Dyr-P-Type Natriuretic Peptide 108 pg/mL (0-449) Total Protein 7.4 g/dL (6.4-8.2) Albumin 3.9 g/dL (3.4-5.0) Lipase 192 U/L (73-393) EKG EKG My interpretation of EKG shows sinus rate 65, Lt. BBB, Review with prior AFib on 11/24/12[] Radiology/Procedures Radiology/Procedures My interpretation of CXR shows cardiomegaly, no acute cardiopul. changes. My interpretation of CT head show no shift, mass, edema. bleed or fx. Does have atrophy. [] Course & Med Decision Making Course & Med Decision Making Pertinent Labs and Imaging studies reviewed. (See chart for details) Discussed presentation, testing and tx. plan with Dr. Grigsby- Will admit for further eval. Consult to cardiology and neurology [] Final Impression Final Impression 1. Dizzy, near syncope 2. Weakness- generalized 3. DM- glucose 122 4. Elevated Creat. and Bun- possible vol. depletion 5. Lt. BBB and Bradycardia 6. Hx. CADz. [] Dragon Disclaimer Dragon Disclaimer This electronic medical record was generated, in whole or in part, using a voice recognition dictation system. ANNA POWERS MD May 19, 2018 22:33
--- NOTE | 2018-05-19 22:38 | EKG ---
[address] [address] Test Date: 2018-05-19 Test Time: 22:28:51 Pat Name: TACHO VAZQUEZ Department: Room: Gender: M Catering Service Manager: SAVANNAH : 1940 Requested By: ANNA POWERS Order Number: [id number] Reading MD: Ector Louis MD Measurements Intervals [place] Rate: 63 P: 35 PA: 158 QRS: -13 QRSD: 140 T: 7 QT: 440 QTc: 454 Interpretive Statements SINUS ARRHYTHMIA PAC'S RBBB CANNOT RULE OUT INFERIOR INFARCT Electronically Signed On 05-20-2018 11:14:13 CDT by Ector Louis MD
[2018-05-19] MEDS ORDERED: IV NORMAL SALINE 1,000ML 1,000 ML IV SCH (23:00)
[2018-05-19] MEDS ORDERED: ASPIRIN 81 MG TAB.CHEW PO ONE (23:00)
[2018-05-19 23:18] LABS: BASO # 0.1 x10^3/uL (0.0-0.2); BASO % 1 % (0-3); EOS # 0.1 x10^3/uL (0.0-0.7); EOS % 2 % (0-3); HEMATOCRIT 39.1 % (39.0-53.0); HEMOGLOBIN 13.2 g/dL (13.0-17.5); LYMPH # 2.3 x10^3/uL (1.0-4.8); LYMPH % 32 % (24-48); MEAN CORPUSCULAR HEMOGLOBIN 30 pg (25-35); MEAN CORPUSCULAR HGB CONC 34 g/dL (31-37); MEAN CORPUSCULAR VOLUME 90 fL (79-100); MONO # 0.7 x10^3/uL (0.0-1.1); MONO % 9 % (0-9); NEUT # 4.1 x10^3uL (1.8-7.7); NEUT % 56 % (31-73); PLATELET COUNT 159 x10^3/uL (140-400); RED BLOOD COUNT 4.36 x10^6/uL (4.30-5.70); RED CELL DISTRIBUTION WIDTH 13.2 % (11.5-14.5); WHITE BLOOD COUNT 7.3 x10^3/uL (4.0-11.0)
--- NOTE | 2018-05-19 23:30 | RAD ---
CT head without contrast TECHNIQUE: [address] imaging skull base to vertex. HISTORY: Dizziness, weakness and hypertension. FINDINGS: Small cyst or subcentimeter cavitary chronic lacunar infarct right basal ganglia. Mild calcification of the basal ganglia. No acute infarct or acute ischemic change evident. No intracranial hemorrhage, mass or hydrocephalus. Mild generalized brain atrophy is present. 1 cm left ethmoid sinus osteoma. Orbits, mastoids and bones are unremarkable. IMPRESSION: No acute intracranial CT abnormality. Exposure: One or more of the following individualized dose reduction techniques were utilized for this examination: 1. Automated exposure control 2. Adjustment of the mA and/or kV according to patient size 3. Use of iterative reconstruction technique Electronically signed by: Dylon Poe MD (05/19/2018 11:27 PM) [facility]
[2018-05-19 23:44] LABS: ALBUMIN 3.9 g/dL (3.4-5.0); ALK PHOS 40 U/L (46-116); ALT (SGPT) 26 U/L (16-63); ANION GAP 7 (6-14); AST (SGOT) 34 U/L (15-37); BLOOD UREA NITROGEN 35 mg/dL (8-26); CALCIUM 9.7 mg/dL (8.5-10.1); CARBON DIOXIDE 28 mmol/L (21-32); CHLORIDE 103 mmol/L (98-107); CREATININE 1.8 mg/dL (0.7-1.3); GFR 36.7; GLUCOSE 122 mg/dL (70-99); LIPASE 192 U/L (73-393); MAGNESIUM 1.9 mg/dL (1.8-2.4); POTASSIUM 4.6 mmol/L (3.5-5.1); SODIUM 138 mmol/L (136-145); TOTAL BILIRUBIN 0.4 mg/dL (0.2-1.0); TOTAL PROTEIN 7.4 g/dL (6.4-8.2)
[2018-05-19 23:46] LABS: DIRECT BILIRUBIN < 0.1 mg/dL (0.0-0.2)
[2018-05-20 01:30] VITALS: BP 161/79
[2018-05-20] MEDS ORDERED: LOSA100T6 PO (01:38)
[2018-05-20] MEDS ORDERED: DILT120C80 PO (01:38)
[2018-05-20] MEDS ORDERED: DRON400T PO (01:38)
[2018-05-20 04:15] LABS: BARBITURATES NEG (NEG); BENZODIAZEPINES NEG (NEG); CANNABINOIDS NEG (NEG); COCAINE NEG (NEG); METHADONE NEG (NEG); OPIATES NEG (NEG); PHENCYCLIDINE NEG (NEG)
[2018-05-20 04:17] LABS: BACTERIA,URINE 0 /HPF (0-FEW); BILIRUBIN,URINE NEG (NEG); CLARITY,URINE CLEAR; COLOR,URINE YELLOW; GLUCOSE,URINE NEG (NEG); NITRITE,URINE NEG (NEG); RBC,URINE 0 /HPF (0-2); SQUAMOUS EPITHELIAL CELL,UR OCC /LPF; UROBILINOGEN,URINE 0.2 mg/dL (0.2 mg/dL); WBC,URINE RARE /HPF (0-4)
[2018-05-20 04:19] LABS: AMPHETAMINE/METHAMPHETAMINE NEG (NEG)
--- NOTE | 2018-05-20 06:46 | EKG ---
[address] [address] Test Date: 2018-05-19 Test Time: 22:26:53 Pat Name: TACHO VAZQUEZ Department: Room: [address] A Gender: M Drug And Alcohol Counsellor: SAVANNAH : 1940 Requested By: DEMETRIA COMBS Order Number: [id number] Reading MD: Ector Louis MD Measurements Intervals [place] Rate: 66 P: 45 [place]: 174 QRS: -19 QRSD: 130 T: 2 QT: 426 QTc: 448 Interpretive Statements SINUS RHYTHM RIGHT BUNDLE BRANCH BLOCK CANNOT RULE OUT PRIOR INFERIOR INFARCT Electronically Signed On 05-20-2018 11:13:46 CDT by Ector Louis MD
--- NOTE | 2018-05-20 07:31 | RAD ---
Indication: Chest pain, dizziness and weakness. TECHNIQUE: Portable AP upright chest x-ray COMPARISON: 02/19/2018 FINDINGS: Heart is normal in size. Lungs are clear. No pneumothorax or pleural effusion. Visualized bony thorax is within normal limits. IMPRESSION: No acute cardiopulmonary process. Electronically signed by: Karlo Horne DO (05/20/2018 7:28 AM) [facility]
[2018-05-20 08:21] LABS: BASO % 1 % (0-3); EOS # 0.1 x10^3/uL (0.0-0.7); EOS % 2 % (0-3); HEMATOCRIT 40.5 % (39.0-53.0); HEMOGLOBIN 13.7 g/dL (13.0-17.5); LYMPH # 2.3 x10^3/uL (1.0-4.8); LYMPH % 36 % (24-48); MEAN CORPUSCULAR HEMOGLOBIN 30 pg (25-35); MEAN CORPUSCULAR HGB CONC 34 g/dL (31-37); MEAN CORPUSCULAR VOLUME 90 fL (79-100); MONO # 0.5 x10^3/uL (0.0-1.1); MONO % 8 % (0-9); NEUT # 3.4 x10^3uL (1.8-7.7); NEUT % 53 % (31-73); PLATELET COUNT 148 x10^3/uL (140-400); RED BLOOD COUNT 4.53 x10^6/uL (4.30-5.70); RED CELL DISTRIBUTION WIDTH 13.2 % (11.5-14.5); WHITE BLOOD COUNT 6.3 x10^3/uL (4.0-11.0)
[2018-05-20 08:32] LABS: CALCIUM 9.6 mg/dL (8.5-10.1); CREATININE 1.6 mg/dL (0.7-1.3)
[2018-05-20] MEDS ORDERED: FERROUS SULFATE 325 MG TABLET. PO SCH (09:00)
[2018-05-20] MEDS ORDERED: MULTIVITAMIN with MINERAL TABLET. PO SCH (09:00)
[2018-05-20] MEDS ORDERED: APIXABAN 5 MG TABLET. PO SCH (09:00)
[2018-05-20] MEDS ORDERED: CALCIUM CARB/VIT D3 500/200 TABLET PO SCH (09:00)
[2018-05-20] MEDS ORDERED: ASCORBIC ACID 500 MG TABLET PO SCH (09:00)
[2018-05-20] MEDS ORDERED: LOSARTAN 50 MG TABLET. PO SCH (09:00)
[2018-05-20] MEDS ORDERED: DRONEDARONE HCL 400 MG TABLET PO SCH (09:00)
[2018-05-20] MEDS ORDERED: FENOFIBRATE NANOCRYSTALLIZED 145 MG TABLET PO SCH (09:00)
[2018-05-20 09:12] VITALS: BP 153/73
[2018-05-20 09:13] VITALS: BP 159/89
[2018-05-20 09:14] VITALS: BP 159/75
[2018-05-20 10:23] VITALS: BP 159/75
[2018-05-20] MEDS ORDERED: AMLO10TA2 PO (14:09)
--- NOTE | 2018-05-20 14:15 | RAD ---
Carotid doppler ultrasound History: Dizziness, near syncopal episode Multiple grayscale, color, and duplex spectral analysis waveform sonographic images were acquired of the carotid, subclavian, and vertebral arteries. Comparison: None Findings: RIGHT: PSV cm/sec EDV cm/sec Common carotid artery 92 15 Maximal internal carotid artery 124 30 External carotid artery 109 Vertebral artery 46 ICA/CCA ratio 1.35 LEFT: PSV cm/sec EDV cm/sec Common carotid artery 84 17 Maximum internal carotid artery 147 27 External carotid artery 125 Vertebral artery 45 ICA/CCA ratio 1.75 Velocities used to determine stenosis are known to correlate with NASCET angiographic criteria. There is antegrade flow in the bilateral vertebral arteries. There is mild mixed echogenicity plaque of the bilateral carotid bulbs. No significant stenosis is demonstrated on grayscale or color images. Impression: 1. There is no evidence of a hemodynamically significant stenosis. There is mild mixed echogenicity plaque of the carotid bulbs bilaterally, compatible with component of calcified and soft plaque. Electronically signed by: Carlos Pinon MD (05/20/2018 2:12 PM) [id number]
--- NOTE | 2018-05-20 14:17 | PDOC2 ---
RHONDA OLVERA VAN CDL DRIVER 05/20/18 1417: CONSULT Date of Admission DATE: 05/20/18 TIME: 13:59 Reason for Consult: Weakness and lightheadedness Referring Physician: Dr Grigsby Problem List Problems Medical Problems: (1) Dizzy Status: Acute History of Present Illness This is a 77 year old male who Presented to the emergency room via EMS with chief complaint of lightheadedness and weakness. He has a past medical history of paroxysmal atrial fibrillation, hypertension, hyperlipidemia, and chronic kidney disease stage 3. yesterday morning he had been out in the heat taking his dog out for a walk in the morning and then he was out again to cut his grass that a 3rd time to cone picker sticks. He figures he was out about 2 hr total before the he did the day. He thought he was drinking plenty of his water but his is unsure. He sat down to watch the [employer] and upon standing up at about 9:00 p.m. became extremely lightheaded. Sat down waited a few minutes tried again and upon walking to the kitchen he felt like he was very unbalanced and lightheaded. He took his blood pressure and it was 150 systolic with a heart rate in the 70s. So we went back to the couch. When he sat down he did not feel lightheaded but was extremely weak and started to become scared. He got up to walk into their spare room where his was on the computer and he felt like he was staggering. They called EMS because they were afraid he was having a stroke. He was found to have a high creatinine in the emergency room so they gave him a L of fluid and he did start to feel better. Recently he had an event monitor in our office that showed he was having 3-3 and 0.5 sec pauses and we did decrease his diltiazem to 120 mg daily. He has not had any breakthrough atrial fibrillation since his dosage was increased that he knows about. His heart rate in the emergency room was slower but not significant and I have not seen any strips reported here of bradycardia. Today he continues to feel lightheaded but it is just mild and his gait is hesitant but not off kilter. He denies any associated chest pain, pressure or tightness. He has not had any problems with palpitations or shortness of breath Review of systems -review of 10 organ systems is negative except for as in HPI. Allergies DOXYCYCLINE Medications Calcium 1 tablet daily Cardia XT 120 mg daily Eliquis 5 mg twice a day fenofibrate 160 mg daily iron 1 tablet daily losartan 100 mg daily Multaq 400 mg twice a day vitamin-C 1 tablet daily Social History Marital status: Diet: Regular Exercise level: Moderate Smoking Status: Never smoker Alcohol intake: None Caffeine intake: Occasional Surgical History Cataract surgery, bilateral knee surgery, TURP, and skin cancer removal Past Medical History Significant for atrial fibrillation, hypertension, hyperlipidemia, chronic kidney disease stage 3 family history father had at of staph infection and pneumonia at age 82 mother of unknown reasons at age 62 no family history of premature coronary artery disease physical exam GENERAL: This is a well developed, well nourished male. No apparent distress. SKIN: Warm and dry with normal skin turgor. Negative for pallor. No lesions or rashes noted. EYES: Conjunctiva are clear. Extraocular movements are intact. No xanthelasma. HEAD AND NECK: Oral mucosa is moist. There is no cyanosis. Neck is supple. Jugular venous pressure is flat. Carotid pulses are 2/2 bilaterally. No carotid bruits. There is no obvious thyromegaly. HEART: Regular rate and rhythm. Normal S1 and S2. No S3. No S4. No significant murmur. No rub. PMI is not displaced. LUNGS: Effort is good. There is symmetric expansion bilaterally. Clear to auscultation bilaterally. No wheezes. No crackles. No rhonchi. ABDOMEN: Normal active bowel sounds. Soft. Nontender. EXTREMITIES: No clubbing. No cyanosis. No edema of lower extremities. Palpable pedal pulses. MUSCULOSKELETAL: No kyphosis. No scoliosis. No localized tenderness or stiffness. Gait appears normal. NEUROLOGIC: Alert and oriented times three. Cranial nerves III-XII are grossly intact. Good motor tone and strength in the upper and lower extremities bilaterally. PSYCHOLOGIC: This is a pleasant patient with a normal affect Procedure Documentation ZIO 02/24/18: Predominant sinus rhythm with rates between 39 at 8:11 am and a maximum of 124 with intermittent paroxysmal atrial fibrillation with rates as high as 125 bpm. The total atrial fibrillation burden appears to be less then 1%. Pauses from 3- 3.5 seconds, appears predominantly at nighttime, when the patient converts from atrial fibrillation to sinus rhythm. There are rare ventricular ectopy and supraventricular ectopy. The patient triggered the device once and complained of another symptom of choking and lightheadedness ECHOCARDIOGRAM IMPRESSION (11/06/2017):. There is mild concentric left ventricular hypertrophy. The left ventricular systolic function is normal with a visually estimated ejection fraction of 60-65 %. There is evidence of impaired left ventricular relaxation suggestive of stage I diastolic dysfunction. The proximal ascending aorta appears mildly dilated at 3.9 cm. There is mildaortic stenosis. There is mild aortic regurgitation. There is mild mitral annular calcification. The estimated pulmonary artery systolic pressure is normal at 28 mmHg. Compared to the report (images were not available for review) of the study dated 10/30/2016, there is no significant change. EVENT MONITOR 05/02/17: Predominant rhythm was sinus with heart rate ranging from 39 to 139 bpm, with averate 70 bpm. There was an intermittent bundle brance block noted. There were rare episodes of atrial fibrillation (<1%), with longest episode lasting over 11 minutes. Fastest ventricular rate with afib was 139bpm. There were occasional pauses, longest lasting 3.9 seconds. There were occasional isolated PAC's and rare isolated PVC's. THere were no significant ventricular arrhythmias. There was one triggered event that correlated with sinus rhythm. ECHOCARDIOGRAM IMPRESSION (10/30/2016):. There is mild concentric left ventricular hypertrophy. No significant regional wall motion abnormalities are identified. The left ventricular systolic function is normal with a visually estimated ejection fraction of 55-60%. There is evidence of impaired left ventricular relaxation suggestive of stage I diastolic dysfunction. The proximal ascending aorta appears mildly dilated at 4.1 cm. There is mild aortic valve sclerosis. There is mild mitral annular calcification. There is mild aortic and tricuspid regurgitation. The estimated pulmonary artery systolic pressure is normal at 29 mmHg. Compared to the report (images were not available for review) of the study dated 10/25/2015, the pulmonary hypertension is not seen. ECHOCARDIOGRAM IMPRESSION (10/25/2015): The left ventricle is normal in size. There is mild concentric left ventricular hypertrophy. No significant regional wall motion abnormalities are identified. The left ventricular systolic function is normal with an estimated ejection fraction of 60%. There is evidence of impaired left ventricular relaxation suggestive of stage I diastolic dysfunction. The proximal ascending aorta appears mildly dilated at 3.9 cm. There is mild aortic valve sclerosis. There is mild aortic and tricuspid regurgitation. The estimated pulmonary artery systolic pressure is 36 mmHg, consistent with mild pulmonary hypertension. Compared to the report (images were not available for review) of the study dated 09/13/2010, mild aortic regurgitation, mild ascending aortic dilatation and mild pulmonary hypertension are new findings. EXERCISE NUCLEAR STRESS TEST IMPRESSION (12/01/2012): Hemodynamic response: There was a normal heart rate and a normal blood pressure response to stress. Clinical response: There was no chest pain during stress. Arrhythmias: None. Stress ECG: There were no significant stress induced ECG changes. Exercise capacity: Good. Carrion score: 6. Myocardial perfusion: Normal perfusion without evidence of infarction or ischemia. Wall motion: Normal. Ejection fraction: 54%. No previous study available for comparison. ECHOCARDIOGRAM IMPRESSION (09/13/2010):. The left ventricle is normal in size. There is mild concentric left ventricular hypertrophy. No significant regional wall motion abnormalities are identified. The left ventricular systolic function is normal with an estimated ejection fraction of 70%. The left ventricular diastolic parameters are consistent with grade I diastolic dysfunction. The left atrium is mildly dilated. There is trace mitral, pulmonic, and tricuspid regurgitation with normal estimated pulmonary artery pressure. Assessment / Plan lightheadedness with weakness -this was likely related to dehydration from him being out in the morning time. He did improve with 1 L of IV fluid. However he did have a sinus pauses of 3 0.2 sec on his recent monitor. We did decrease his diltiazem to 120 mg daily but we will go ahead and stop at this point and switch him over to Norvasc 10 mg daily. Consider repeating outpatient monitor. In the hospital he has not had any arrhythmias, or significant bradycardia. Atrial fibrillation, paroxysmal. The patient seems to be remaining in sinus rhythm. [id number] Vasc score is 2, Continue Multaq and for rate/rhythm maintenance and Eliquis for anticoagulation. Essential Hypertension - Change diltiazem over to Norvasc 10 mg daily and continue losartan 100 mg daily Hyperlipidemia . His goal LDL is < 100 mg/dL. Thoracic aortic aneurysm - Dilated at 4.1 cm. Stable on echocardiogram in October. Chronic kidney disease, Stage 3 - GFR 42 - Avoid dehydration - drink plenty of water. Avoid Motrin, Ibuprofen, Advil, Naprosyn or Aleve and take Tylenol for pain. Aggressive blood pressure control with goal of less than 130/85 mmHg. Obesity. BMI 30, Lifestyle modification with exercise, diet and weight loss recommended. Pulmonary hypertension- plan for echocardiogram in October Thank for much Dr. Grigsby for the courtesy of this consult we will be happy to follow along with you. Current Medications Current Medications Aspirin (Children'S Aspirin) 324 mg 1X ONCE PO ; Start 05/19/18 at 23:00; Stop 05/19/18 at 23:01; Status DC Sodium Chloride 1,000 ml @ 100 mls/hr Q10H IV Last administered on 05/19/18at 23 :35; Start 05/19/18 at 23:00; Stop 05/20/18 at 08:59; Status DC Diltiazem HCl (Cardizem 24hr Cd) 120 mg DAILY PO Last administered on at 10:14; Start 05/20/18 at 09:00; Stop 05/20/18 at 12:36; Status DC Dronedarone (Multaq) 400 mg BID PO Last administered on 05/20/18at 10:23; Start 05/20/18 at 09:00 Ferrous Sulfate (Feosol) 325 mg QODAY PO Last administered on 05/20/18at 10:14; Start 05/20/18 at 09:00 Apixaban (Eliquis) 5 mg BID PO Last administered on 05/20/18at 10:14; Start 08/28 at 09:00 Ascorbic Acid (Vitamin C) 500 mg DAILY PO Last administered on 05/20/18at 10:13 ; Start 05/20/18 at 09:00 Calcium/Vitamin D (Oscal D 500mg/ 200uts) 1 tab DAILY PO Last administered on at 10:14; Start 05/20/18 at 09:00 Fenofibrate (Tricor) 145 mg DAILY PO Last administered on 05/20/18at 10:12; Start 05/20/18 at 09:00 Losartan Potassium (Cozaar) 100 mg DAILY PO Last administered on 05/20/18at 10: 13; Start 05/20/18 at 09:00 Multivitamins/ Calcium (Thera-M Plus) 1 tab DAILY PO Last administered on at 10:13; Start 05/20/18 at 09:00 Amlodipine Besylate (Norvasc) 10 mg DAILY PO ; Start 05/21/18 at 09:00 Active Scripts Active Reported Multaq (Dronedarone Hcl) 400 Mg Tablet 1 Tab PO BID Diltiazem 24HR Cd (Diltiazem Hcl) 120 Mg Cap.er.24h 1 Cap PO DAILY Losartan Potassium 100 Mg Tablet 100 Mg PO DAILY Calcium 500 + Vit D 400 Tablet (Calcium Carbonate/Vitamin D3) 1 Each Tablet 1 Each PO DAILY Vitamin C (Ascorbic Acid) 500 Mg Capsule.er 500 Mg PO DAILY Multivitamins (Multivitamin) 1 Each Tablet 1 Tab PO DAILY Ferrous Sulfate 325 Mg Tablet 1 Tab PO QODAY Eliquis (Apixaban) 5 Mg Tablet 5 Mg PO BID Trilipix (Fenofibric Acid (Choline)) 135 Mg Capsule.dr 135 Mg PO DAILY last dose next dose Allergies: Coded Allergies: No Known Drug Allergies (Unverified , 02/19/18) VITALS Vital Signs Date Time Temp Pulse Resp B/P (MAP) Pulse Ox O2 Delivery O2 Flow Rate FiO2 05/20/18 10:23 83 159/75 05/20/18 09:14 97 Room Air 05/20/18 09:12 97.8 20 Labs Laboratory Tests Test 05/19/18 22:53 05/20/18 03:59 05/20/18 08:00 White Blood Count 7.3 x10^3/uL (4.0-11.0) 6.3 x10^3/uL (4.0-11.0) Red Blood Count 4.36 x10^6/uL (4.30-5.70) 4.53 x10^6/uL (4.30-5.70) Hemoglobin 13.2 g/dL (13.0-17.5) 13.7 g/dL (13.0-17.5) Hematocrit 39.1 % (39.0-53.0) 40.5 % (39.0-53.0) Mean Corpuscular Volume 90 fL (79-100) 90 fL (79-100) Mean Corpuscular Hemoglobin 30 pg (25-35) 30 pg (25-35) Mean Corpuscular Hemoglobin Concent 34 g/dL (31-37) 34 g/dL (31-37) Red Cell Distribution Width 13.2 % (11.5-14.5) 13.2 % (11.5-14.5) Platelet Count 159 x10^3/uL (140-400) 148 x10^3/uL (140-400) Neutrophils (%) (Auto) 56 % (31-73) 53 % (31-73) Lymphocytes (%) (Auto) 32 % (24-48) 36 % (24-48) Monocytes (%) (Auto) 9 % (0-9) 8 % (0-9) Eosinophils (%) (Auto) 2 % (0-3) 2 % (0-3) Basophils (%) (Auto) 1 % (0-3) 1 % (0-3) Neutrophils # (Auto) 4.1 x10^3uL (1.8-7.7) 3.4 x10^3uL (1.8-7.7) Lymphocytes # (Auto) 2.3 x10^3/uL (1.0-4.8) 2.3 x10^3/uL (1.0-4.8) Monocytes # (Auto) 0.7 x10^3/uL (0.0-1.1) 0.5 x10^3/uL (0.0-1.1) Eosinophils # (Auto) 0.1 x10^3/uL (0.0-0.7) 0.1 x10^3/uL (0.0-0.7) Basophils # (Auto) 0.1 x10^3/uL (0.0-0.2) 0.0 x10^3/uL (0.0-0.2) Prothrombin Time 11.6 SEC (9.4-11.4) Prothromb Time International Ratio 1.1 (0.9-1.1) Activated Partial Thromboplast Time 26 SEC (23-33) D-Dimer (Sherry) 0.24 mg/L (0.00-0.50) Sodium Level 138 mmol/L (136-145) 140 mmol/L (136-145) Potassium Level 4.6 mmol/L (3.5-5.1) 4.0 mmol/L (3.5-5.1) Chloride Level 103 mmol/L (98-107) 104 mmol/L (98-107) Carbon Dioxide Level 28 mmol/L (21-32) 29 mmol/L (21-32) Anion Gap 7 (6-14) 7 (6-14) Blood Urea Nitrogen 35 mg/dL (8-26) 27 mg/dL (8-26) Creatinine 1.8 mg/dL (0.7-1.3) 1.6 mg/dL (0.7-1.3) Estimated GFR (Cockcroft-Gault) 36.7 42.0 Glucose Level 122 mg/dL (70-99) 97 mg/dL (70-99) Calcium Level 9.7 mg/dL (8.5-10.1) 9.6 mg/dL (8.5-10.1) Magnesium Level 1.9 mg/dL (1.8-2.4) Total Bilirubin 0.4 mg/dL (0.2-1.0) Direct Bilirubin < 0.1 mg/dL (0.0-0.2) Aspartate Amino Transf (AST/SGOT) 34 U/L (15-37) Alanine Aminotransferase (ALT/SGPT) 26 U/L (16-63) Alkaline Phosphatase 40 U/L (46-116) Creatine Kinase 192 U/L (39-308) Creatine Kinase MB (Mass) 2.4 ng/mL (0.0-3.6) Creatine Kinase MB Relative Index 1.3 % (0-4) Troponin I Quantitative < 0.017 ng/mL (0-0.055) [id number]-Type Natriuretic Peptide 108 pg/mL (0-449) Total Protein 7.4 g/dL (6.4-8.2) Albumin 3.9 g/dL (3.4-5.0) Lipase 192 U/L (73-393) Urine Collection Type Unknown Urine Color Yellow Urine Clarity Clear Urine pH 5.5 Urine Specific [place] 1.010 Urine Protein Neg (NEG-TRACE) Urine Glucose (UA) Neg mg/dL (NEG) Urine Ketones (Stick) Neg mg/dL (NEG) Urine Blood Neg (NEG) Urine Nitrite Neg (NEG) Urine Bilirubin Neg (NEG) Urine Urobilinogen Dipstick 0.2 mg/dL (0.2 mg/dL) Urine Leukocyte Esterase Neg (NEG) Urine RBC 0 /HPF (0-2) Urine WBC Rare /HPF (0-4) Urine Squamous Epithelial Cells Occ /LPF Urine Bacteria 0 /HPF (0-FEW) Urine Opiates Screen Neg (NEG) Urine Methadone Screen Neg (NEG) Urine Barbiturates Neg (NEG) Urine Phencyclidine Screen Neg (NEG) Urine Amphetamine/Methamphetamine Neg (NEG) Urine Benzodiazepines Screen Neg (NEG) Urine Cocaine Screen Neg (NEG) Urine Cannabinoids Screen Neg (NEG) Urine Ethyl Alcohol Neg (NEG) ALEJANDRO PAIGE Jr, MD 05/21/18 0608: CONSULT Assessment/Plan ADDENDUM: The patient was seen by Rhonda Olvera APRN and I have reviewed her findings and plan and agree with above. Due to staffing constraints, we did not have an attending available on this day to see the patient. MD CARMEN Olivera Jr., JANAE M APRN May 20, 2018 14:17 ALEJANDRO APIGE Jr, MD May 21, 2018 06:08
--- NOTE | 2018-05-20 15:14 | HP ---
ADMIT DATE: 05/20/2018 HISTORY OF PRESENT ILLNESS: This 78-year-old male came in through the Emergency Room early this morning apparently was having problems with extreme lightheadedness, felt like he was going to pass out. The patient had near syncopal spells and as a result of this, the patient was admitted for further evaluation and treatment. He was just very unsteady on his feet. There was some consideration of the possibility of a TIA or a stroke, so he was admitted for further evaluation and observation of these multiple medical problems. PAST MEDICAL HISTORY: Includes that of cataract surgery, tonsillectomy, adenoidectomy, coronary artery disease. He is on chronic anticoagulant therapy for chronic atrial fib, hypercholesterolemia, renal disease, urinary tract infection, prostate problems and has had a TURP in the past, urination urgency, orthopedic surgery, joint replacement, and skin cancer. The patient's immunizations for flu and pneumococcal up-to-date. FAMILY HISTORY: Daughter and mother with diabetes, obesity with daughter, hypertension with 2 daughters, and cardiovascular disease with father. ALLERGIES: No known allergies are noted on his note. MEDICATIONS: Ferrous sulfate, Eliquis 5 mg, Multaq 400 mg, choline, diltiazem, losartan, calcium carbonate, ascorbic acid, and multivitamin. SOCIAL HISTORY: No smoking, alcohol, or drug use. REVIEW OF SYSTEMS: The patient denies any headaches, visual changes, blurred vision, double vision except generalized weakness, lightheadedness noted. Denies chest pain. Does have some shortness of breath, generalized weakness, and unsteadiness on his feet, hard to control his legs. PHYSICAL EXAMINATION: GENERAL: This is a pleasant white male, looking slightly ill, but no acute distress, feeling very weak. VITAL SIGNS: Blood pressure 150/70, respiratory rate 20, pulse 80, afebrile. HEENT: The patient's head was atraumatic, normocephalic. Eyes: PERRLA without jaundice. The mouth and throat were normal. NECK: Supple. No JVD or carotid bruits. No thyromegaly. LUNGS: The patient's lungs were diminished throughout, but clear. CARDIOVASCULAR: Irregularly irregular rhythm. ABDOMEN: Protuberant, soft, nontender. No rebound or guarding. Positive bowel sounds. No hepatosplenomegaly was noted. EXTREMITIES: No clubbing, cyanosis. Trace edema noted. NEUROLOGIC: Alert and oriented, little bit slower than usual. LABORATORY DATA: The patient's creatinine was 1.8 and GFR down to 36. Sodium and potassium were normal. ASSESSMENT AND PLAN: In any case, the patient was admitted for generalized weakness, possible transient ischemic attack, unsteadiness in gait, generalized weakness of acute onset. The patient continued to be monitored. Consult with his special effects technician, Dr. Louis, and make further evaluation on him as indicated. DEMETRIA COMBS MD DR: PAMELA/mckay JOB#: [id number] / [id number]
[2018-05-20 20:24] LABS: THYROID STIM HORMONE (TSH) 2.648 uIU/mL (0.358-3.740)
--- NOTE | 2018-05-20 22:49 | CONS ---
DATE OF CONSULTATION: 05/20/2018 NEUROLOGIC CONSULTATION REFERRING PHYSICIAN: Dr. Grigsby. REASON FOR CONSULTATION: Rule out near syncope versus seizure. HISTORY OF PRESENT ILLNESS: This is a 78-year-old right-handed male who was admitted through Emergency Room early this morning after he presented with chief complaint of severe dizziness and generalized weakness. According to the patient, last night, he tried to get up of a couch, and all of a sudden he felt dizzy, described as lightheadedness with mild headaches confined to the left temporal regions. He denies nausea, chest pain, shortness of breath or palpitations. The patient took an aspirin 325 mg and sat down. When he tried to go to the bathroom, again he felt dizzy and weak in both lower extremities. He did not fall. He denies numbness or paresthesia, dysphagia, dysarthria or diplopia. The patient denies any recent head injuries or fall. PAST MEDICAL HISTORY: Significant for paroxysmal atrial fibrillation. The last time he had a cardiac arrhythmia in 2012. He was placed on Multaq and Eliquis. Other medical problems include hypertension, hyperlipidemia, stage 3 renal failure, history of coronary artery disease, GERD, urinary tract infections, skin cancer. PAST SURGICAL HISTORY: Significant for right total knee replacement, right foot surgery, skin cancer excision, adenectomy and tonsillectomy as a child, and cataract removal. FAMILY HISTORY: Positive for obesity, diabetes mellitus, hypertension, and cardiovascular disease. SOCIAL HISTORY: The patient is . He smokes cigarette when he mows his back yard every 2 weeks. He denies alcohol drinking or illegal drug use. CURRENT HOME MEDICATIONS: Eliquis 5 mg b.i.d., vitamin C 500 mg daily, calcium and vitamin D3, diltiazem, Multaq 400 mg 1 tablet b.i.d., ferrous sulfate 325 mg tablet daily, losartan 100 mg daily and multivitamins. REVIEW OF SYSTEMS: A 10-point review of system was performed as mentioned above in history of present illness, otherwise unremarkable. PHYSICAL EXAMINATION: GENERAL: A moderately obese male in no acute distress. VITAL SIGNS: Blood pressure 161/79, respiratory rate 20, pulse is 63, temperature 98.3, oxygen saturation 98% on room air. HEENT: Normocephalic, atraumatic, otherwise unremarkable. NECK: Supple. Negative for carotid bruit, lymphadenopathy or thyromegaly. LUNGS: Clear to A and P. CARDIOVASCULAR: Regular rate and rhythm, normal S1, S2. There is no S3, S4 or murmur. ABDOMEN: Soft. Bowel sounds positive. EXTREMITIES: Negative for cyanosis, clubbing or pitting edema. NEUROLOGIC: Mental status: The patient is alert and oriented x 3. The speech is fluent. There is no language dysfunction. Memory, judgment, and abstract thinking are normal. The patient denies hallucination or delusion. Cranial nerves: Visual leung are full. The pupils are reactive to light and accommodation. The extraocular movements are intact. There is no nystagmus. There is no facial motor or sensory deficit. Hearing is intact bilaterally. The palate is elevated symmetrically. Sternocleidomastoid muscles are powerful bilaterally. The patient shrugs his shoulders symmetrically, protrudes his tongue in the midline without fasciculation or atrophy. Motor: No focal muscle bulk was seen. The tone is normal. The strength is 5/5 throughout. Sensory: Revealed normal pinprick, light touch, vibratory and position senses. Deep tendon reflexes were symmetric and hypoactive with absent Achilles responses. Gait and coordination are normal. IMAGING: Nonenhanced head CT scan revealed no evidence of acute cardiopulmonary process. Chest x-ray revealed no acute cardiopulmonary process. LABORATORY DATA: CBC revealed white blood cells of 6.3, hemoglobin 13.7, hematocrit 40.5, platelet count 148,000. Chemistry revealed sodium of 138, potassium 4.6, chloride 103, CO2 of 28, BUN 25, creatinine 1.8, glucose is 122, calcium 9.7. Liver enzymes are normal. Cardiac enzymes are normal with normal troponin level. Urinalysis is negative for urinary tract infections and urine drug screen is negative. PT is 11.6, INR is 1.1. D-dimer is normal at 0.24. IMPRESSION: 1. Dizziness induced by changing body positions quickly associated with generalized weakness mainly in the lower extremities. Currently, the neuro examination is unremarkable. Near syncope versus paroxysmal cardiac arrhythmias. Seizure is remote possibility. 2. History of paroxysmal atrial fibrillations, not present at this time. 3. Multiple medical problems include hypertension, hyperlipidemia, stage 3 renal failure, hyperglycemia. RECOMMENDATIONS: 1. Continue with current management. 2. Cardiac arrhythmia. 3. Physical therapy as tolerated. 4. Careful hydration. M Catherine BASILIO MD DR: Aftab JOB#: [id number] / [id number]
[2018-05-21] MEDS ORDERED: amLODIPine BESYLATE 10 MG TABLET PO SCH (09:00)
--- NOTE | 2018-05-21 20:01 | DS ---
DATE OF DISCHARGE: 05/20/2018 HOSPITAL COURSE: A 78-year-old male. The patient came in through the Emergency Room feeling very weak, lightheaded, and ready to pass out. There was some concern that he might have a TIA. The patient was admitted and monitored carefully and he did have a slight drop in his blood pressure when he was standing. Anyway, he was given IV fluids. This helped him feel much better. His CBC was normal. His creatinine was elevated at 1.6 with a GFR of 42. The patient's other labs were basically unremarkable. The patient made good progress during the rest of his hospitalization and was discharged home per his request. IMPRESSION: Near syncope, possible transient ischemic attack, chronic kidney disease stage 3, hypertriglyceridemia. PLAN: The patient will be discharged home. Continue on home medications and monitor him as an outpatient. DEMETRIA COMBS MD DR: PAMELA/mckay JOB#: [id number] / [id number]
== END 2018-05-20 15:30 | disposition home or self-care (01) | DRG 69 ==
LOC: ER 22:29 → 1 SOUTH 05-20 00:15
PROVIDERS: ADMIT Family Medicine; ATTEND Family Medicine
DX: G45.9 Transient cerebral ischemic attack, unspecified (principal); E11.22 Type 2 diabetes mellitus with diabetic chronic kidney disease; E11.65 Type 2 diabetes mellitus with hyperglycemia; E78.00 Pure hypercholesterolemia, unspecified; E78.5 Hyperlipidemia, unspecified; F17.210 Nicotine dependence, cigarettes, uncomplicated; I12.9 Hypertensive chronic kidney disease with stage 1 through stage 4 chronic kidney disease, or unspecified chronic kidney disease; I25.10 Atherosclerotic heart disease of native coronary artery without angina pectoris; I48.0 Paroxysmal atrial fibrillation; E78.1 Pure hyperglyceridemia; I48.2 Chronic atrial fibrillation; K21.9 Gastro-esophageal reflux disease without esophagitis; N18.3 Chronic kidney disease, stage 3 (moderate); Z96.651 Presence of right artificial knee joint; Z79.01 Long term (current) use of anticoagulants; Z79.82 Long term (current) use of aspirin; Z79.899 Other long term (current) drug therapy; Z82.49 Family history of ischemic heart disease and other diseases of the circulatory system; Z83.3 Family history of diabetes mellitus; Z85.828 Personal history of other malignant neoplasm of skin; Z86.73 Personal history of transient ischemic attack (TIA), and cerebral infarction without residual deficits; Z87.440 Personal history of urinary (tract) infections; Z90.49 Acquired absence of other specified parts of digestive tract
CPT/HCPCS: 36415; 70450; 71045; 80048; 80061; 80076; 80307; 81001; 82553; 83690; 83735; 83880; 84443; 84484; 85025; 85379; 85610; 85730; 93005; 93880; G0238; 97535; 99285-25; G0479; J7030

== ENCOUNTER 2019-02-17 23:16 | Emergency (ER) | payer MEDICARE, BC ==
[~2019-02-17] VITALS: Ht 167.6 cm; Wt 90.7 kg
[~2019-02-17 23:16] MED LIST changes: +AMLO10TA8 PO; +DILT120C85 PO; +LOSA100T14 PO; -LOSA100T6 PO
[2019-02-18] MEDS ORDERED: IV NORMAL SALINE 1,000ML 1,000 ML IV ONE
[2019-02-18 00:32] LABS: FECAL OB PT POSITIVE (NEG)
--- NOTE | 2019-02-18 00:40 | PHYS DOC ---
Past History Past Medical History: A-Fib, High Cholesterol, Hypertension, Renal Disease, Other Past Surgical History: Other Smoking: Non-smoker Alcohol Use: None Drug Use: None Adult General Chief Complaint Chief Complaint: BLOODY STOOL HPI HPI Patient is a 78 year old male who presents with bright red blood per rectum. Patient states at 8:30pm this evening he felt like his bottom was wet. When he went to the bathroom to change clothes he noticed his sweat pants and underwear had blood on them. Patient then put on his depends and a few hours later noticed that he had increased bleeding from his rectum. Due to the increased bleeding patient decided to be evaluated in the ED. Patient reports having diarrhea today. He denies any lightheadedness, dizziness, constipation, nausea , vomiting, abdominal pain, fever, or chills. Patient does report use of blood thinner- Eliquis. Review of Systems Review of Systems Constitutional: Denies fever or chills Eyes: Denies redness or eye pain HENT: Denies nasal congestion or sore throat Respiratory: Denies cough or shortness of breath Cardiovascular: Denies chest pain or palpitations GI: Reports bloody stools or diarrhea, denies abdominal pain, nausea, vomiting : Denies dysuria or hematuria Musculoskeletal: Denies back pain or joint pain Integument: Denies rash or skin lesions Neurologic: Denies headache or focal weakness Complete systems were reviewed and found to be within normal limits, except as documented in this note. Current Medications Current Medications Current Medications Medications (Trade) Dose Ordered Sig/[facility] Start Time Stop Time Status Last Admin Dose Admin Sodium Chloride 1,000 ml @ 1,000 mls/hr 1X ONCE 02/18/19 00:00 02/18/19 00:59 Allergies Allergies Allergies Coded Allergies Type Severity Reaction Last Updated Verified No Known Drug Allergies 02/19/18 No Physical Exam Physical Exam Constitutional: Well developed, well nourished, no acute distress. HENT: Normocephalic, atraumatic, bilateral external ears normal, oropharynx moist. Eyes: EOMI, conjunctiva normal. Neck: Normal range of motion, no tenderness, supple. Cardiovascular: Heart rate regular rhythm, no murmur Lungs & Thorax: Bilateral breath sounds clear to auscultation, no rhonchi, rales, or wheezes Abdomen: Soft, no tenderness, no rebound, rigidity, or guarding, no peritoneal signs. Rectal: Soft external hemorrhoids noted; internal hemorrhoid at 9 o'clock position. bright red blood noted, rectal stricture appreciated Skin: Warm, dry, no erythema. Back: No tenderness, no CVA tenderness. Extremities: No tenderness, ROM intact, no edema. Neurologic: Alert and oriented X 3, normal motor function, no focal deficits noted. Psychologic: Affect normal, mood normal. Current Patient Data Vital Signs Vital Signs Date Time Temp Pulse Resp B/P (MAP) Pulse Ox O2 Delivery O2 Flow Rate FiO2 02/17/19 23:35 97.9 87 20 93 Room Air EKG EKG [] Radiology/Procedures Radiology/Procedures [] Course & Med Decision Making Course & Med Decision Making 78 year old male presented for bright red blood per rectum. He denied any lightheadedness or dizziness. Rectal exam showed non bleeding external hemorrhoids and possible internal hemorrhoids. Labs were obtained and posted to chart. H/H and coags stable. Patient was not orthostatic. Symptomatic treatment provided. Patient stable for discharge with outpatient follow-up with PCP/GI. GI referral provided. Discussed findings and plan with patient and family, who acknowledge understanding and agreement. Dragon Disclaimer Dragon Disclaimer This electronic medical record was generated, in whole or in part, using a voice recognition dictation system. Departure Departure: Impression: Primary Impression: Rectal bleed Disposition: HOME, SELF-CARE Condition: STABLE Referrals: DEMETRIA COMBS MD (PCP) STEFANIA SANTANA MD Patient Instructions: Rectal Bleeding, [id number] Additional Instructions: Make sure to keep stool soft. Use previously prescribed stool softeners as needed. Increase fluid hydration. Follow up with GI for further evaluation. Scripts Hydrocortisone Acetate (ANUSOL-HC) 25 Mg Supp.rect 1 SUPP RC BID for rectal bleeding, #20 SUPP Prov: CANDELARIA BARNETT DO 02/18/19 CANDELARIA BARNETT DO Feb 18, 2019 00:40
[2019-02-18 01:28] LABS: BASO # 0.1 x10^3/uL (0.0-0.2); BASO % 1 % (0-3); EOS # 0.2 x10^3/uL (0.0-0.7); EOS % 3 % (0-3); HEMATOCRIT 40.3 % (39.0-53.0); HEMOGLOBIN 13.5 g/dL (13.0-17.5); LYMPH # 2.1 x10^3/uL (1.0-4.8); LYMPH % 33 % (24-48); MEAN CORPUSCULAR HEMOGLOBIN 30 pg (25-35); MEAN CORPUSCULAR HGB CONC 33 g/dL (31-37); MEAN CORPUSCULAR VOLUME 89 fL (79-100); MONO # 0.6 x10^3/uL (0.0-1.1); MONO % 10 % (0-9); NEUT # 3.5 x10^3uL (1.8-7.7); NEUT % 54 % (31-73); PLATELET COUNT 195 x10^3/uL (140-400); RED BLOOD COUNT 4.52 x10^6/uL (4.30-5.70); RED CELL DISTRIBUTION WIDTH 13.5 % (11.5-14.5); WHITE BLOOD COUNT 6.6 x10^3/uL (4.0-11.0)
[2019-02-18] MEDS ORDERED: HYDR25SU18 RC (01:36)
[2019-02-18 01:41] LABS: ALBUMIN 4.1 g/dL (3.4-5.0); ALBUMIN/GLOBULIN RATIO 1.1 (1.0-1.7); CALCIUM 9.4 mg/dL (8.5-10.1); CREATININE 1.8 mg/dL (0.7-1.3); GFR 36.7; MAGNESIUM 1.8 mg/dL (1.8-2.4); POTASSIUM 4.1 mmol/L (3.5-5.1); TOTAL BILIRUBIN 0.3 mg/dL (0.2-1.0); TOTAL PROTEIN 7.7 g/dL (6.4-8.2)
[2019-02-18 02:00] VITALS: BP 137/71
== END 2019-02-18 02:08 | disposition home or self-care (01) ==
LOC: ER 23:16
DX: K62.5 Hemorrhage of anus and rectum (principal); R19.7 Diarrhea, unspecified; K64.4 Residual hemorrhoidal skin tags; I48.91 Unspecified atrial fibrillation; E78.00 Pure hypercholesterolemia, unspecified; I10 Essential (primary) hypertension
CPT/HCPCS: 36415; 80053; 82274; 83690; 83735; 85025; 85610; 85730; 99283; J7030

== ENCOUNTER → 2020-01-08 | Outpatient (CLI) | payer MEDICARE, BC ==
[~2020-01-08] MED LIST changes: -DILT120C85 PO; +DILT120C99 PO; +HYDR25SU18 RC
--- NOTE | 2020-01-08 16:40 | RAD ---
Chest CT without contrast Clinical indications: Persistent cough for 2 months. COMPARISON: None available. TECHNIQUE: Noncontrast helical CT scanning of the chest was performed. Without contrast, the sensitivity to detect organ pathology is decreased. PQRS compliance Statement One or more of the following individualized dose reduction techniques were utilized for this study: 1. Automated exposure control 2. Adjustment of the mA and/or kV according to patient size 3. Use of iterative reconstruction technique FINDINGS: No enlarged thoracic lymphadenopathy is evident. No focal aneurysmal dilatation of the thoracic aorta is seen. Calcified atheromatous disease of the coronary arteries is seen. No pericardial effusion is seen. The heart size is normal. No lung mass or lung consolidation is evident. No pleural effusion or pneumothorax is seen. The proximal bronchial tree is patent. 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 Multiple Schmorl's nodes and multilevel degenerative disc space narrowing is seen. Autofusion of the disc space of the T5-6 disc space is seen. Incidental note is made of a simple cyst of the upper pole of the right kidney. This is an incidental finding. No follow-up imaging is recommended per consensus recommendations based on imaging criteria. No adrenal mass is seen. IMPRESSION: No acute lung infiltrate. Calcified atheromatous disease of the coronary arteries. Electronically signed by: Umang Sánchez MD (01/08/2020 4:37 PM) [id number]
== END | disposition home or self-care (01) ==
LOC: CT 10:35
PROVIDERS: ATTEND Family Medicine
DX: R05 Cough (principal); I25.10 Atherosclerotic heart disease of native coronary artery without angina pectoris; M48.14 Ankylosing hyperostosis [Forestier], thoracic region; M51.44 Schmorl's nodes, thoracic region; N28.1 Cyst of kidney, acquired; M48.04 Spinal stenosis, thoracic region
CPT/HCPCS: 71250

== ENCOUNTER 2021-07-10 09:27 | Inpatient (IN) | payer MEDICARE, BC ==
[~2021-07-10] VITALS: Ht 175.3 cm; Wt 94.3 kg
[~2021-07-10 09:27] MED LIST changes: +AMLO-187 PO; -AMLO10TA8 PO; -DRON400T PO; +DRON400T6 PO; +MULT-445 PO; -MULT1TAB52 PO
--- NOTE | 2021-07-10 09:57 | PHYS DOC ---
Past History Past Medical History: A-Fib, High Cholesterol, Hypertension, Renal Disease, Other Past Surgical History: Other Smoking: Non-smoker Alcohol Use: None Drug Use: None Adult General HPI HPI Patient is a 81-year-old male presenting for shortness of breath. Onset was yesterday without any known inciting event, major change in health or medication, trauma or other concerning exposure. Reports physical activity makes worse, rest makes better. Denies any focal pain but does admit anytime he tries to be physically active he gets more winded than usual. Reports he was out walking his dog yesterday and had to stop several times to catch his breath, states the typical route he walks would take him 10 minutes but yesterday it took him 25. Feelings of shortness of breath was ongoing until he saw his primary care physician this morning. He was evaluated and an EKG was performed concerning for changes versus baseline and so, PCP advised patient to present to our ER for continued work-up and hospital admission. Of note, he recently had knee surgery March 2021. He has been on Eliquis ever since. No history of hemoptysis, unilateral leg swelling or PE Review of Systems Review of Systems Fourteen body systems of review of systems have been reviewed. See HPI for pertinent positives and negative responses, other payne all other systems are negative, non-pertinent or non-contributory Allergies Allergies Allergies Coded Allergies Type Severity Reaction Last Updated Verified No Known Drug Allergies 02/19/18 No Physical Exam Physical Exam Constitutional: Well developed, well nourished, no acute distress, non-toxic appearance. HENT: Normocephalic, atraumatic, bilateral external ears normal, oropharynx moist, no oral exudates, nose normal. Eyes: PERRLA, EOMI, conjunctiva normal, no discharge. Neck: Normal range of motion, no tenderness, supple, no stridor. Cardiovascular: Heart rate regular, sinus rhythm, no murmurs rubs or gallops Lungs & Thorax: Bilateral breath sounds clear to auscultation Abdomen: Bowel sounds normal, soft, no tenderness, no masses, no pulsatile masses. Nonsurgical abdomen, no peritoneal signs Skin: Warm, dry, no erythema, no rash. Back: No tenderness, no CVA tenderness. Extremities: No tenderness, no cyanosis, no clubbing, ROM intact, no edema. Neurologic: Alert and oriented X 3, grossly normal motor & sensory function, no focal deficits noted. Psychologic: Affect normal, judgement normal, mood normal. Current Patient Data Vital Signs Vital Signs Date Time Temp Pulse Resp B/P (MAP) Pulse Ox O2 Delivery O2 Flow Rate FiO2 07/10/21 09:49 97.8 60 22 152/62 99 Room Air Vital Signs Date Time Temp Pulse Resp B/P (MAP) Pulse Ox O2 Delivery O2 Flow Rate FiO2 07/10/21 09:49 97.8 60 22 152/62 99 Room Air Lab Results Current Medications Medications (Trade) Dose Ordered Sig/Gabriel Route PRN Reason Start Time Stop Time Status Last Admin Dose Admin Aspirin (Aspirin Chewable) 162 mg 1X ONCE PO 07/10/21 10:00 07/10/21 10:01 DC EKG EKG EKG ordered and interpreted by myself at 0957 hrs. as atrial fibrillation at a rate of 58 bpm, prolonged QRS at 130 otherwise unremarkable intervals, no axis deviation, right bundle branch block present, no STEMI Radiology/Procedures Radiology/Procedures AP chest. HISTORY: Short of breath AP view was taken of the chest. Lungs are free of infiltrates. Heart is normal in size. There is no pleural effusion. IMPRESSION: 1. No acute infiltrates. Electronically signed by: Zach Winkler MD (07/10/2021 10:17 AM) [facility] Heart Score C/O Chest Pain: No HEART Score for Chest Pain: HEART Score for Chest Pain Response (Comments) Value History Moderately Suspicious 1 ECG Nonspecific Repolarizatio 1 Age > 65 2 Risk Factors >3 Risk Factors or Hx CAD 2 Troponin < Normal Limit 0 Total 6 Risk Factors: Risk Factors: DM, Current or recent (<one month) smoker, HTN, HLP, family history of CAD, obesity. Risk Scores: Risk Factors: DM, Current or recent (<one month) smoker, HTN, HLP, family history of CAD, obesity. Course & Med Decision Making Course & Med Decision Making Vitals stable. Patient seen at primary care office prior to arrival with re ported EKG changes that were concerning versus his baseline. No emergent or surgical findings today based on ER visit but, heart score and ongoing exertional dyspnea symptoms concerning and so I recommended hospital admission I contacted patient's primary care physician who also serves as hospitalist, he agreed to need for admission and accepted patient under his care. I could not scan patient's chest to rule out pulmonary embolism despite him taking Eliquis due to kidney function. Plans for inpatient cardiology consultation made. I updated patient on proposed plan of care that included hospital admission and he was amenable. All questions and concerns addressed prior to hospital admission Critical Care Time This patient required critical care. Due to the fact that the patient required a significant amount of one on one physician - patient contact time, ordering and review of studies, arranging urgent treatment with development of a management plan, evaluation of patients response to treatment with frequent reassessments, and discussions with other providers this patient required 30 minutes of critical care time. Critical care time was indicated due to the inherent instability and/or potential for instability in this patient. The critical care time that is allocated to this patient is above and beyond any time spent on any other billable procedures performed on this patient. Dragon Disclaimer Dragon Disclaimer This electronic medical record was generated, in whole or in part, using a voice recognition dictation system. Departure Departure: Impression: Primary Impression: Atypical chest pain Additional Impression: Atrial fibrillation, controlled Disposition: 09 ADMITTED INPATIENT Admitting Physician: Demetria Combs Condition: STABLE Referrals: DEMETRIA COMBS MD (PCP) Problem Qualifiers JOSE CARLOS MCCLOUD DO Jul 10, 2021 09:57
[2021-07-10] MEDS ORDERED: ASPIRIN CHEWABLE 81 MG TABLET. PO ONE (10:00)
--- NOTE | 2021-07-10 10:19 | RAD ---
AP chest. HISTORY: Short of breath AP view was taken of the chest. Lungs are free of infiltrates. Heart is normal in size. There is no p leural effusion. IMPRESSION: 1. No acute infiltrates. Electronically signed by: Zach Winkler MD (07/10/2021 10:17 AM) [facility]
--- NOTE | 2021-07-10 10:20 | EKG ---
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
[2021-07-10 11:01] LABS: BASO % 0 % (0-3); EOS # 0.1 x10^3/uL (0.0-0.7); EOS % 1 % (0-3); HEMATOCRIT 34.7 % (39.0-53.0); HEMOGLOBIN 11.4 g/dL (13.0-17.5); LYMPH # 2.6 x10^3/uL (1.0-4.8); LYMPH % 30 % (24-48); MEAN CORPUSCULAR HEMOGLOBIN 29 pg (25-35); MEAN CORPUSCULAR HGB CONC 33 g/dL (31-37); MEAN CORPUSCULAR VOLUME 88 fL (79-100); MONO # 0.6 x10^3/uL (0.0-1.1); MONO % 7 % (0-9); NEUT # 5.4 x10^3uL (1.8-7.7); NEUT % 62 % (31-73); PLATELET COUNT 152 x10^3/uL (140-400); RED BLOOD COUNT 3.94 x10^6/uL (4.30-5.70); RED CELL DISTRIBUTION WIDTH 14.5 % (11.5-14.5); WHITE BLOOD COUNT 8.8 x10^3/uL (4.0-11.0)
[2021-07-10 11:07] LABS: CALCIUM 8.4 mg/dL (8.5-10.1); CREATININE 2.2 mg/dL (0.7-1.3); GFR 28.9
[2021-07-10 11:20] LABS: ALBUMIN 3.7 g/dL (3.4-5.0); ALBUMIN/GLOBULIN RATIO 1.3 (1.0-1.7); TOTAL BILIRUBIN 0.2 mg/dL (0.2-1.0); TOTAL PROTEIN 6.5 g/dL (6.4-8.2)
[2021-07-10] MEDS ORDERED: ACETAMINOPHEN 325 MG TABLET PO PRN (12:30)
[2021-07-10] MEDS ORDERED: NITROGLYCERIN SUBLINGUAL 0.4 MG BOTTLE OF 25. SL PRN (12:30)
[2021-07-10] MEDS ORDERED: FENO135C2 PO (21:54)
[2021-07-10 22:00] VITALS: BP 152/68
[2021-07-10] MEDS ORDERED: AMLO-187 PO (22:01)
[2021-07-10] MEDS: APIXABAN 2.5 MG TABLET PO SCH (22:36)
[2021-07-10] MEDS: DRONEDARONE HCL 400 MG TABLET PO SCH (22:38)
[2021-07-11 02:57] VITALS: BP 132/75
[2021-07-11] MEDS: CALCIUM CARBONATE 500 MG TABLET PO SCH (07:41)
[2021-07-11] MEDS: MULTIVITAMIN with MINERAL TABLET. PO SCH (07:41)
[2021-07-11] MEDS: CHOLECALCIFEROL (VITAMIN D3) 1,000 UNIT TABLET PO SCH (07:41)
[2021-07-11] MEDS: APIXABAN 2.5 MG TABLET PO SCH ×2 (07:42→20:24)
[2021-07-11] MEDS: LOSARTAN 50 MG TABLET. PO SCH (07:42)
[2021-07-11] MEDS: DRONEDARONE HCL 400 MG TABLET PO SCH ×2 (08:59→20:24)
[2021-07-11] MEDS: amLODIPine BESYLATE 10 MG TABLET PO SCH ×2 (08:59→20:25)
[2021-07-11] MEDS ORDERED: VITAMIN D3 PO SCH (09:00)
[2021-07-11] MEDS ORDERED: CALCIUM CARBONATE PO SCH (09:00)
[2021-07-11] MEDS ORDERED: [UNRECOGNIZED DRUG - OTHER] PO SCH (09:00)
--- NOTE | 2021-07-11 09:14 | PDOC2 ---
TOMÁS PARSONS AIRLINE MANAGER 07/11/21 0914: CARDIAC CONSULT DATE OF CONSULT DOS: DATE: 07/11/21 TIME: 09:13 REASON FOR CONSULT Reason for Consult dyspnea REFERRING PHYSICIAN Referring Physician Dr. Grigsby SOURCE Source: Chart review, Patient HPI History of Present Illness This is an 81 yo male who presented secondary to chest pressure. Patient reports undergoing left knee replacement in March. Since then, he reports decreased stamina since surgery. Has been experiencing dyspnea upon exertion. On Saturday, was out walking with his and became very short of breath. Experiencing pressure in his central chest. [place] as if his heart was beating fast. Was also diaphoretic. No dizziness or nausea/vomiting. He eventually was able to ambulate back home to rest, but too him quite some time. Chest pressure continued throughout the evening and night. made him see PCP, Dr. Vazquez Saturday morning. Symptoms had resolved without intervention by the time he went to his appointment. Patient does have a history of AFIB. Follow with [facility], Dr. Gatica. Had stress test in March prior to knee replacement for which he reports was normal. Reports compliance with medications including Eliquis. Patient reports having r ecurrent AFIB in March s/p knee replacement at [facility]. Is feeling well this morning and has no further chest pain/pressure since arrival. EKG shows regular rhythm, but no clear p-waves identified. Is SR on tele. PAST MEDICAL HISTORY Cardiovascular: AFIB, HTN, hyperipidemia Heme/Onc: Anemia NOS Renal/: Chronic renal insuff PAST SURGICAL HISTORY Past Surgical History: Cataract Removal, Total knee replacement (bilateral ), Tonsillectomy FAMILY HISTORY Family History: Diabetes, Heart Disease SOCIAL HISTORY Smoke: Quit ALCOHOL: none Drugs: None Lives: with Family CURRENT MEDICATIONS Current Medications Current Medications Aspirin (Aspirin Chewable) 162 mg 1X ONCE PO Last administered on 07/10/21at 11:11; Start 07/10/21 at 10:00; Stop 07/10/21 at 10:01; Status DC Acetaminophen (Tylenol) 650 mg PRN Q4HRS PRN PO FEVER > 100.3'F Last administ ered on 07/10/21at 22:36; Start 07/10/21 at 12:30; Stop 07/11/21 at 12:29 Nitroglycerin (Nitrostat) 0.4 mg PRN Q5MIN PRN SL CHEST PAIN; Start 07/10/21 at 12:30; Stop 07/11/21 at 12:29 Apixaban (Eliquis) 2.5 mg BID PO Last administered on 07/11/21at 07:42; Start 07/10/21 at 22:30 Fenofibrate (Tricor) 145 mg BID PO ; Start 07/11/21 at 22:30 Multivitamins/ Calcium (Thera-M Plus) 1 tab DAILY PO Last administered on 07/11/21 07:41; Start 07/11/21 at 09:00 Dronedarone (Multaq) 400 mg BID PO Last administered on 07/11/21 08:59; Start 07/10/21 at 22:30 Amlodipine Besylate (Norvasc) 10 mg BID PO Last administered on 07/11/21 08:59; Start 07/11/21 at 09:00 Diltiazem HCl (Cardizem 24hr Cd) 120 mg DAILY PO Last administered on 07/11/21at 07:46; Start 07/11/21 at 09:00 Ferrous Sulfate (Feosol) 325 mg QODAY PO ; Start 07/12/21 at 09:00 Non-Formulary Medication (Calcium Carbonate/Vitamin D3 (Calcium 500 + Vit D 400 Tablet)) 1 each DAILY PO ; Start 07/11/21 at 09:00; Status UNV Losartan Potassium (Cozaar) 100 mg DAILY PO Last administered on 07/11/21at 07:42; Start 07/11/21 at 09:00 Calcium Carbonate/ Glycine (Oscal) 500 mg DAILY PO Last administered on 07/11/21at 07:41; Start 07/11/21 at 09:00 Vitamin D (Vitamin D3) 500 unit DAILY PO Last administered on 07/11/21at 07:41; Start 07/11/21 at 09:00 Active Scripts Active Reported Amlodipine Besylate 10 Mg Tablet 10 Mg PO BID Fenofibric Acid (Fenofibric Acid (Choline)) 135 Mg Capsule.dr 160 Mg PO BID Multaq (Dronedarone Hcl) 400 Mg Tablet 1 Tab PO BID Diltiazem 24HR Cd (Diltiazem Hcl) 120 Mg Cap.er.24h 1 Cap PO DAILY Losartan Potassium 100 Mg Tablet 100 Mg PO DAILY Calcium 500 + Vit D 400 Tablet (Calcium Carbonate/Vitamin D3) 1 Each Tablet 1 Each PO DAILY Multivitamins (Multivitamin) 1 Each Tablet 1 Tab PO DAILY Ferrous Sulfate 325 Mg Tablet 1 Tab PO QODAY Eliquis (Apixaban) 5 Mg Tablet 5 Mg PO BID ALLERGIES Allergies: Coded Allergies: No Known Drug Allergies (Unverified , 02/19/18) ROS Review of Systems 14 point ROS conducted with pertinent positives noted above in HPI PHYSICAL EXAM General: Alert, Oriented X3, Cooperative, No acute distress HEENT: Atraumatic Lungs: Clear to auscultation Heart: Regular rate Abdomen: Soft, No tenderness Extremities: No edema, Normal pulses Skin: No breakdown Neuro: Normal speech, Sensation intact, Cranial nerves 3-12 NL Psych/Mental Status: Mental status NL, Mood NL MUSCULOSKELETAL: Osteoarthritic changes both hands VITALS Vital Signs Vital Signs Date Time Temp Pulse Resp B/P (MAP) Pulse Ox O2 Delivery O2 Flow Rate FiO2 07/11/21 08:59 65 132/75 07/11/21 02:57 97.0 20 98 Room Air LABS LABS Laboratory Tests Test 07/10/21 10:42 07/10/21 12:58 07/10/21 15:17 07/10/21 16:53 White Blood Count 8.8 x10^3/uL (4.0-11.0) Red Blood Count 3.94 x10^6/uL (4.30-5.70) Hemoglobin 11.4 g/dL (13.0-17.5) Hematocrit 34.7 % (39.0-53.0) Mean Corpuscular Volume 88 fL (79-100) Mean Corpuscular Hemoglobin 29 pg (25-35) Mean Corpuscular Hemoglobin Concent 33 g/dL (31-37) Red Cell Distribution Width 14.5 % (11.5-14.5) Platelet Count 152 x10^3/uL (140-400) Neutrophils (%) (Auto) 62 % (31-73) Lymphocytes (%) (Auto) 30 % (24-48) Monocytes (%) (Auto) 7 % (0-9) Eosinophils (%) (Auto) 1 % (0-3) Basophils (%) (Auto) 0 % (0-3) Neutrophils # (Auto) 5.4 x10^3uL (1.8-7.7) Lymphocytes # (Auto) 2.6 x10^3/uL (1.0-4.8) Monocytes # (Auto) 0.6 x10^3/uL (0.0-1.1) Eosinophils # (Auto) 0.1 x10^3/uL (0.0-0.7) Basophils # (Auto) 0.0 x10^3/uL (0.0-0.2) Sodium Level 140 mmol/L (136-145) Potassium Level 5.0 mmol/L (3.5-5.1) Chloride Level 106 mmol/L (98-107) Carbon Dioxide Level 23 mmol/L (21-32) Anion Gap 11 (6-14) Blood Urea Nitrogen 46 mg/dL (8-26) Creatinine 2.2 mg/dL (0.7-1.3) Estimated GFR (Cockcroft-Gault) 28.9 BUN/Creatinine Ratio 21 (6-20) Glucose Level 123 mg/dL (70-99) Calcium Level 8.4 mg/dL (8.5-10.1) Total Bilirubin 0.2 mg/dL (0.2-1.0) Aspartate Amino Transf (AST/SGOT) 21 U/L (15-37) Alanine Aminotransferase (ALT/SGPT) 33 U/L (16-63) Alkaline Phosphatase 36 U/L (46-116) Troponin I Quantitative < 0.017 ng/mL (0-0.055) < 0.017 ng/mL (0-0.055) < 0.017 ng/mL (0-0.055) KC-Big-Z-Type Natriuretic Peptide 1146 pg/mL (0-449) Total Protein 6.5 g/dL (6.4-8.2) Albumin 3.7 g/dL (3.4-5.0) Albumin/Globulin Ratio 1.3 (1.0-1.7) SARS-CoV-2 Antigen (Rapid) Negative (NEGATIVE) Test 07/10/21 18:39 Troponin I Quantitative < 0.017 ng/mL (0-0.055) ASSESSMENT/PLAN Assessment/Plan 1. Chest pressure; AMI ruled out. Reports normal stress test in March of this year prior to knee replacement 2. Dyspnea upon exertion; possible component of decondition as this developed post knee replacement. Underlining CAD as contributing factors cannot be ruled out. 3. PAFIB; presently SR. [facility] Eliquis for stroke prophylaxis. [facility] 4. Hypertension; controlled 5. Hyperlipidemia 6. CKD Recommendations TSH Lipids Cardizem for rate control Multaq for rhythm maintenance Eliquis for stroke prophylaxis Echo ordered Consider further ischemic evaluation on an outpatient basis Discussed outpatient event monitor; patient would like conducted through primary carrier loader with [facility] Supportive care LANDY HARVEY MD 07/11/21 4429: CARDIAC CONSULT ASSESSMENT/PLAN Assessment/Plan Patient seen and examined. Agree with BALING MACHINE OPERATOR's assessment and plan. CP atypical. ID ruled out. One episode of GIPSON uncertain etiology. No clinical evidence for fluid overload. Recent MPI 03/31 without any ischemia PAF presently SR Continue multaq for rhythm maintenance and eliquis for stroke prophylaxis 2D echo showed normal LVEF with mild If symptoms recur consider cardiac cath - defer to primary carrier loader Thank you for your consultation Follow up with primary carrier loader TOMÁS PARSONS APRN Jul 11, 2021 09:14 LANDY HARVEY MD Jul 11, 2021 18:49
[2021-07-11 10:55] VITALS: BP 129/65
[2021-07-11] MEDS: ACETAMINOPHEN 325 MG TABLET PO PRN ×2 (13:53→21:58)
--- NOTE | 2021-07-11 14:13 | RAD ---
EXAM: Chest, single view. HISTORY: Shortness of breath. COMPARISON: 07/10/2021 FINDINGS: A frontal view of the chest is obtained. There is stable mild eventration of the right kiley diaphragm. There is no infiltrate, pleural effusion or pneumothorax. There is a stable cardiac silhou ette. IMPRESSION: No acute pulmonary finding. Electronically signed by: Lorie Vines MD (07/11/2021 2:11 PM) [id number]
[2021-07-11 15:00] VITALS: BP 107/57
--- NOTE | 2021-07-11 17:03 | CARD ---
MR#: [id number] Date of Study: 07/11/2021 Ordering Physician: DEMETRIA COMBS, Referring Physician: DEMETRIA COMBS, Tech: Dae Barcenas [facility] [place] APPROVED REPORT EXAM: Two-dimensional and M-mode echocardiogram with Doppler and color Doppler. Other Information Quality : AverageHR: 61bpm Rhythm : NSR INDICATION Dyspnea Atrial Fibrillation RISK FACTORS Hypertension Obesity Hyperlipidemia Diabetes 2D DIMENSIONS Left Atrium(2D)4.1 (1.6-4.0cm)IVSd1.5 (0.7-1.1cm) Aortic Root(2D)3.7 (2.0-3.7cm)LVDd4.2 (3.9-5.9cm) LVOT Diameter1.9 (1.8-2.4cm)PWd1.5 (0.7-1.1cm) LVDs2.9 (2.5-4.0cm)FS (%) 31.8 % SV47.1 mlLVEF(%)60.3 (>50%) Aortic Valve AoV Peak Hossein.208.6cm/sAoV VTI39.3cm AO Peak GR.17.4mmHgLVOT Peak Hossein.97.6cm/s LVOT VTI 21.71cmAO Mean GR.10mmHg TAJ (VMAX)1.53fd6QTF (VTI)1.52cm2 Mitral Valve MV E Kapwzice981.6cm/sMV E Peak Gr.7mmHg MV DECEL UYIZ304urJO A Gyklnwgw16.5cm/s MV E Mean Gr.3mmHgE/A Ratio4.8 Pulmonary Valve PV Peak Kttxbysz43.9cm/sPV Peak Grad.3mmHg Tricuspid Valve TR P. Buqyxnlg736zy/sTR Peak Gr.29mmHg LEFT VENTRICLE The left ventricle is normal size. There is moderate concentric left ventricular hypertrophy. The lef t ventricular systolic function is normal. The ejection fraction is 60%. There is normal LV segmental wall motion. No left ventricle thrombus noted on this study. There is no ventricular septal defect v isualized. There is no left ventricular aneurysm. There is no mass noted in the left ventricle. RIGHT VENTRICLE The right ventricle is normal size. There is normal right ventricular wall thickness. The right ventr icular systolic function is normal. ATRIA The left atrium is mildly dilated. The right atrium size is normal. The interatrial septum is intact with no evidence for an atrial septal defect or patent foramen ovale as noted on 2-D or Doppler imagi ng. AORTIC VALVE The aortic valve is moderately thickened. The right coronary cusp is heavily calcified. Doppler and C olor Flow revealed trace aortic regurgitation. There is mild valvular aortic stenosis. Calculated aor tic valve area is 1.3 cm2 with maximum pressure gradient of 17 mmHg and mean pressure gradient of 9 m mHg. There is no aortic valvular vegetation. MITRAL VALVE Mitral annular calcification is moderate. There is no evidence of mitral valve prolapse. There is no mitral valve stenosis. Doppler and Color-flow revealed trace to mild mitral regurgitation. TRICUSPID VALVE The tricuspid valve is normal in structure and function. Doppler and Color Flow revealed trace tricus pid regurgitation. The PA pressure was estimated at 35 mmHg. There is no tricuspid valve prolapse or vegetation. There is no tricuspid valve stenosis. PULMONIC VALVE The pulmonary valve is normal in structure and function. Doppler and Color Flow revealed no pulmonic valvular regurgitation. There is no pulmonic valvular stenosis. GREAT VESSELS The aortic root is normal in size. The ascending aorta is normal in size. The pulmonary artery is nor mal. The IVC is normal in size and collapses >50% with inspiration. PERICARDIAL EFFUSION There is no pleural effusion. There is no evidence of significant pericardial effusion. Critical Notification Critical Value: No <Conclusion> The left ventricular systolic function is normal. The ejection fraction is 60%. There is normal LV segmental wall motion. There is mild valvular aortic stenosis. Trace to mild mitral regurgitation. Trace tricuspid regurgitation. The PA pressure was estimated at 35 mmHg. There is no evidence of significant pericardial effusion. Signed by : Herman Humphrey, Electronically Approved : 07/11/2021 17:03:01
--- NOTE | 2021-07-11 18:03 | EKG ---
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
[2021-07-11 20:40] VITALS: BP 136/62
[2021-07-11] MEDS: FENOFIBRATE NANOCRYSTALLIZED 145 MG TABLET PO SCH (21:58)
[2021-07-11 23:56] VITALS: BP 106/54
[2021-07-12 06:21] VITALS: BP 132/66
[2021-07-12] MEDS: FENOFIBRATE NANOCRYSTALLIZED 145 MG TABLET PO SCH (07:51)
[2021-07-12] MEDS: APIXABAN 2.5 MG TABLET PO SCH (07:52)
[2021-07-12] MEDS: CHOLECALCIFEROL (VITAMIN D3) 1,000 UNIT TABLET PO SCH (07:52)
[2021-07-12] MEDS: MULTIVITAMIN with MINERAL TABLET. PO SCH (07:52)
[2021-07-12] MEDS: CALCIUM CARBONATE 500 MG TABLET PO SCH (07:52)
[2021-07-12] MEDS: LOSARTAN 50 MG TABLET. PO SCH (07:53)
[2021-07-12] MEDS: amLODIPine BESYLATE 10 MG TABLET PO SCH (07:53)
[2021-07-12] MEDS: DRONEDARONE HCL 400 MG TABLET PO SCH (07:54)
--- NOTE | 2021-07-12 08:05 | PDOC ---
CARDIO Progress Notes Date & Time Date of Service DATE: 07/12/21 TIME: 08:02 Time of Evaluation 08:02 Subjective Notes No chest pain or SOA this morning. Had episode of CP/left side pain yesterday afternoon. Vitals Vitals Vital Signs Date Time Temp Pulse Resp B/P (MAP) Pulse Ox O2 Delivery O2 Flow Rate FiO2 07/12/21 07:54 71 132/66 07/12/21 06:21 97.4 20 97 Room Air Weight Weight [ ] Input and Output I.O. Intake and Output 07/12/21 07:00 Intake Total 1560 ml Balance 1560 ml Intake Oral 1560 ml # Voids 4 Laboratory Labs Laboratory Tests Test 07/10/21 10:42 07/10/21 12:58 07/10/21 13:53 07/10/21 15:17 White Blood Count 8.8 x10^3/uL (4.0-11.0) Red Blood Count 3.94 x10^6/uL (4.30-5.70) Hemoglobin 11.4 g/dL (13.0-17.5) Hematocrit 34.7 % (39.0-53.0) Mean Corpuscular Volume 88 fL (79-100) Mean Corpuscular Hemoglobin 29 pg (25-35) Mean Corpuscular Hemoglobin Concent 33 g/dL (31-37) Red Cell Distribution Width 14.5 % (11.5-14.5) Platelet Count 152 x10^3/uL (140-400) Neutrophils (%) (Auto) 62 % (31-73) Lymphocytes (%) (Auto) 30 % (24-48) Monocytes (%) (Auto) 7 % (0-9) Eosinophils (%) (Auto) 1 % (0-3) Basophils (%) (Auto) 0 % (0-3) Neutrophils # (Auto) 5.4 x10^3uL (1.8-7.7) Lymphocytes # (Auto) 2.6 x10^3/uL (1.0-4.8) Monocytes # (Auto) 0.6 x10^3/uL (0.0-1.1) Eosinophils # (Auto) 0.1 x10^3/uL (0.0-0.7) Basophils # (Auto) 0.0 x10^3/uL (0.0-0.2) Sodium Level 140 mmol/L (136-145) Potassium Level 5.0 mmol/L (3.5-5.1) Chloride Level 106 mmol/L (98-107) Carbon Dioxide Level 23 mmol/L (21-32) Anion Gap 11 (6-14) Blood Urea Nitrogen 46 mg/dL (8-26) Creatinine 2.2 mg/dL (0.7-1.3) Estimated GFR (Cockcroft-Gault) 28.9 BUN/Creatinine Ratio 21 (6-20) Glucose Level 123 mg/dL (70-99) Calcium Level 8.4 mg/dL (8.5-10.1) Total Bilirubin 0.2 mg/dL (0.2-1.0) Aspartate Amino Transf (AST/SGOT) 21 U/L (15-37) Alanine Aminotransferase (ALT/SGPT) 33 U/L (16-63) Alkaline Phosphatase 36 U/L (46-116) Troponin I Quantitative < 0.017 ng/mL (0-0.055) < 0.017 ng/mL (0-0.055) < 0.017 ng/mL (0-0.055) KW-Soo-W-Type Natriuretic Peptide 1146 pg/mL (0-449) Total Protein 6.5 g/dL (6.4-8.2) Albumin 3.7 g/dL (3.4-5.0) Albumin/Globulin Ratio 1.3 (1.0-1.7) Coronavirus (COVID-19)(PCR) Negative (NEGATIVE) Test 07/10/21 16:53 07/10/21 18:39 07/11/21 09:30 07/12/21 05:53 SARS-CoV-2 Antigen (Rapid) Negative (NEGATIVE) Troponin I Quantitative < 0.017 ng/mL (0-0.055) < 0.017 ng/mL (0-0.055) D-Dimer (Sherry) 1.56 mg/L (0.00-0.50) Creatine Kinase 102 U/L (39-308) Physical Exams HEENT: Neck Supple W Full Motion Chest: Symmetric Lungs: Clear to Auscultation Heart: RRR Abdomen: Soft N/T Extremities: No Edema Neurology: alert, oriented, follow commands Assessment Assessment 1. Chest pressure; troponin series remain normal. AMI ruled out. Reports normal stress test in March of this year prior to knee replacement. 2D echo showed normal LVEF with mild 2. Dyspnea upon exertion; no evidence of fluid overload. etiology unclear 3. PAFIB; presently SR. On Eliquis for stroke prophylaxis. Follows with [facility], Dr. Gatica 4. Hypertension; controlled 5. Hyperlipidemia 6. 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 Gatica upon discharge TOMÁS PARSONS APRN Jul 12, 2021 08:05
[2021-07-12] MEDS ORDERED: FERROUS SULFATE 325 MG TABLET. PO SCH (09:00)
[2021-07-12 10:49] VITALS: BP 106/62
--- NOTE | 2021-07-12 14:19 | RAD ---
Indication: Reason: chest pain and soa / Spl. Instructions: / History: Technique: Static images are obtained of both lungs following IV administration of 5 mCi of 99 M tech netium MAA. 3 mCi of xenon was utilized and ventilation images obtained Comparison: Chest x-ray from previous day Findings: Mild perfusion defects are seen without a definitive mismatch defect identified. Impression: 1. Overall low probability of pulmonary embolus. Electronically signed by: Matt Mckinley MD (07/12/2021 2:16 PM) [id number]
[2021-07-12 14:20] VITALS: BP 94/55
[2021-07-12] MEDS: ACETAMINOPHEN 325 MG TABLET PO PRN (15:11)
[2021-07-12] MEDS ORDERED: APIX2.5T PO (15:27)
[2021-07-12 17:52] LABS: THYROID STIM HORMONE (TSH) 1.859 uIU/mL (0.358-3.740)
--- NOTE | 2021-07-12 21:02 | DS ---
DATE OF DISCHARGE: 07/12/2021 HOSPITAL COURSE: An 81-year-old gentleman came in with increased shortness of breath and chest pain. The patient was worked up. Cardiology reviewed his echocardiogram, which is 60% ejection fraction. The patient still has marked dyspnea, at least that is what he senses. A V/Q scan was negative. The patient's room air was 95-97%, blood pressure 106/62, respirations 17, pulse 54, afebrile. The patient is alert and oriented. Lungs are diminished throughout, poor movement of air. The patient made excellent progress during the rest of his hospitalization and he was discharged home. D-dimer was 1.56, but as noted, V/Q was negative. Hemoglobin 11 and 34. Sodium and potassium 140 and 5, BUN and creatinine 46 and 2.2, glucose 123, BNP of 1100. The patient had SARS negative. The patient made some progress while he was in the hospital, was seen by Cardiology and he will follow up with Dr. 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 IMPRESSION: Dyspnea on exertion; paroxysmal atrial fibrillation, presently in sinus rhythm, on Eliquis for prophylaxis; hypertension, uncontrolled; hyperkalemia; chronic kidney disease. DISCHARGE PLAN: We will go ahead and continue to monitor patient as an outpatient. He will be on a heart healthy diet, decreased activity. Follow up with Dr. Gatica and myself and make further evaluation. PAMELA/MAO MAN: PAMELA/mckay TID: [id number]
== END 2021-07-12 16:50 | disposition home or self-care (01) | DRG 303 ==
LOC: ER 09:27 → 1 SOUTH 19:38
PROVIDERS: ADMIT Family Medicine; ATTEND Family Medicine
DX: I25.10 Atherosclerotic heart disease of native coronary artery without angina pectoris (principal); I48.0 Paroxysmal atrial fibrillation; E78.00 Pure hypercholesterolemia, unspecified; E78.5 Hyperlipidemia, unspecified; I12.9 Hypertensive chronic kidney disease with stage 1 through stage 4 chronic kidney disease, or unspecified chronic kidney disease; N18.9 Chronic kidney disease, unspecified; Z96.653 Presence of artificial knee joint, bilateral; E87.5 Hyperkalemia; Z83.3 Family history of diabetes mellitus; Z20.822 Contact with and (suspected) exposure to COVID-19
CPT/HCPCS: 36415; 71045; 78582; 80053; 80061; 82550; 83880; 84443; 84484; 85025; 85379; 87426; 93005; 93306; 96374; A9540; A9558; U0003; 99285-25